=== PATIENT | female | born 1940 | race Caucasian/White ===

== ENCOUNTER → 2016-08-28 | Outpatient (CLI) | payer MEDICARE, OTHER | END | disposition home or self-care (01) | LOC: GMAB 10:25 | PROVIDERS: ATTEND Family Medicine | DX: I10 Essential (primary) hypertension (principal) ==

== ENCOUNTER → 2016-08-30 | Outpatient (CLI) | payer OTHER ==
--- NOTE | 2016-09-02 09:07 | CT ---
EXAM DESCRIPTION: Chest w/o Contrast CLINICAL HISTORY: COPD Reference: November 07, 2016 TECHNIQUE: CT of the chest was performed without contrast.. Multiple axial images and multiplanar reconstructions were generated. This exam was performed according to our department minimal dose optimization program which includes automated exposure control, adjustment of mA and/or kV according to patient size and/or use of iterative reconstructed techniques. FINDINGS: Mild emphysema noted. Chronic bronchopulmonary changes seen in the periphery of bilateral lungs. Scarring seen within the right middle lobe. Scarring seen within the lingula. Tiny 2-3 mm peripheral nodules noted. No pleural disease. Multiple left breast masses. Heart size is normal. Coronary artery disease noted. No mediastinal lymphadenopathy. Bilateral renal stones. Query right hydronephrosis versus peripelvic cysts. IMPRESSION: 1. Multiple left breast masses. Recommend a mammogram and ultrasound of left breast. 2. Mild emphysema. 3. Tiny 2-3 mm pulmonary nodules noted within the periphery of bilateral lungs. A follow-up in 6-12 months is suggested. 4. Left nonobstructing renal stones seen within the upper pole of kidney. Query a right upper pole parapelvic cyst or right hydronephrosis. Electronically signed by: Bryson Torres MD 09/02/2016 9:07 AM CDT
== END | disposition home or self-care (01) ==
LOC: CT 11:02
PROVIDERS: ATTEND Family Medicine
DX: J44.9 Chronic obstructive pulmonary disease, unspecified (principal)

== ENCOUNTER → 2016-09-11 | Outpatient (CLI) | payer OTHER ==
--- NOTE | 2016-09-11 12:20 | US ---
EXAM DESCRIPTION: Diagnostic Mammo,Bilateral (accession [id number]), Breast,Bilateral (accession [id number]) CLINICAL HISTORY: 76 years, Female, Screening mammogram COMPARISON: None TECHNIQUE: CC and MLO digital mammograms with computer aided detection. FINDINGS: The breast parenchyma is heterogeneously dense which may decrease the sensitivity of mammography. The palpable abnormality is a large spiculated mass with architectural distortion in the upper inner aspect of the left breast 6 cm from the nipple. The mass measures 2.7 x 2.4 cm in size and is just medial to the median nipple line located at about 11:00. There are associated malignant pleomorphic microcalcifications. There is also a second nodule located medially near the chest wall as seen on the CT scan only partially visualized on the mammogram. This measures 7 mm in size and is most consistent with metastatic lymphadenopathy. Smoothly marginated masslike density is present in the central portion of the gland behind the nipple on the left. Ill-defined asymmetric parenchymal density is present in the deep portion of the gland on the right centrally just above the median nipple line. Ultrasound of both breasts is performed to evaluate the findings described above. The spiculated mass with associated architectural distortion on the left is indeed a solid hypoechoic shadowing irregularly lobulated mass measuring 2.9 cm in size. Calcifications are observed within the anterior of the mass. The other two findings discussed above are both simple cysts one on the left at about 2:00 and one on the right at 10:00. IMPRESSION: BI-RADS 5 - HIGHLY SUGGESTIVE OF MALIGNANCY - APPROPRIATE ACTION SHOULD BE TAKEN. 1. A negative x-ray report should not delay biopsy if a dominant or clinically suspicious mass is present. 10 -15% of cancers are not identified by x-ray. 2. A negative report may reinforce clinical impression. 3. Adenosis and dense breasts may obscure an underlying neoplasm. 4. False positive reports average 6 -10%. I have discussed the findings with Dr. Ledezma by telephone Electronically signed by: Morris Currie MD 09/11/2016 12:19 PM CDT
== END | disposition home or self-care (01) ==
LOC: MAMMO 11:13
PROVIDERS: ATTEND Surgery
DX: N63 Unspecified lump in breast (principal)

== ENCOUNTER → 2016-09-12 | Outpatient (CLI) | payer MEDICARE, OTHER ==
--- NOTE | 2016-09-12 13:38 | US ---
History: Palpable nodules bilaterally. Suspicious left breast nodule 11:00. DATE OF SERVICE: 09/12/2016 Services provided: Ultrasound guided core needle biopsy left breast nodule 11:00. Ultrasound-guided needle biopsy second nodule left breast 11:00 FINDINGS: A total of 11 images are submitted and demonstrate needle biopsy of two nodules at the 11:00 portion of the left breast, performed by the patient's surgeon. Complication is not suggested on this series provided. IMPRESSION: Technically successful biopsy multifocal nodules left breast 11:00. Electronically signed by: Florina Her MD 09/12/2016 1:38 PM CDT
--- NOTE | 2016-09-13 11:25 | OP ---
DATE OF PROCEDURE: 09/12/16 PREOPERATIVE DIAGNOSIS: 1. Abnormal left mammogram. POSTOPERATIVE DIAGNOSIS: 1. Abnormal left mammogram. PROCEDURE: 1. Sonographically guided needle core biopsy of left breast mass times two. SURGEON: Luis Enrique Ledezma MD. TELECOMMUNICATION OPERATOR: None. ANESTHESIA: Local infiltration of 1% lidocaine. INDICATION: The patient is a 76-year-old female who on CT scan to followup previous small pulmonary nodules was found to have masses in both breasts. She has undergone ultrasound and mammographic workup which revealed two solid masses in the left breast, one at 11 o'clock and one medial to that. She was brought to the Ultrasound Suite today for these biopsies after the risks, benefits and alternatives to the procedure were discussed and accepted. FINDINGS: Good solid cores were taken from both lesions. PROCEDURE: The patient was placed in the supine position in the Ultrasound Suite with her left arm extended. The breast was examined and the two masses were identified. The breast lateral and inferior the ultrasound probe was prepped with Betadine and then draped. Local infiltration of anesthesia was obtained with 1% lidocaine. A stab wound was then made with a 15 blade. There was a significant amount of venous bleeding, which was controlled with pressure. The ultrasound device was then used to guide the needle core biopsy device with multiple passes in both lesions, which she tolerated easily. A single suture was placed in the stab wound and then with pressure, bleeding was controlled easily. She was then dressed with a pressure dressing and discharged home in stable condition. Estimated blood loss was less than 25 mL. The patient tolerated the procedure well. #[id number] [facility]
== END | disposition home or self-care (01) ==
LOC: US 09:54
PROVIDERS: ATTEND Surgery
DX: N63 Unspecified lump in breast (principal)

== ENCOUNTER → 2016-09-17 | Outpatient (CLI) | payer MEDICARE, OTHER | LOC: LAB.O 12:48 | PROVIDERS: ATTEND Surgery | DX: C50.212 Malignant neoplasm of upper-inner quadrant of left female breast (principal) ==

== ENCOUNTER → 2016-09-19 | Outpatient (CLI) | payer MEDICARE, OTHER ==
--- NOTE | 2016-09-24 09:02 | NM ---
Whole body bone scintigraphy CLINICAL HISTORY: Breast carcinoma. Assess for metastatic disease TECHNIQUE: Whole body bone scan with 28 mCi technetium 99 MDP FINDINGS: Multifocal articular uptake consistent with osteoarthritis. Cervicothoracic and lumbar degenerative disc and facet disease likely accounts for the uptake in the spine There are no lesions in the axial or appendicular skeleton to strongly suggest metastatic disease IMPRESSION: No scintigraphic evidence to strongly suggest osseous metastatic disease. The abnormal uptake of the radiopharmaceutical can be attributed to osteoarthritis and spondylosis Electronically signed by: Ap Kaiser MD 09/24/2016 9:02 AM CDT
== END ==
LOC: NM 08:28
PROVIDERS: ATTEND Surgery
DX: C50.212 Malignant neoplasm of upper-inner quadrant of left female breast (principal)

== ENCOUNTER → 2016-11-29 | Outpatient (CLI) | payer MEDICARE, OTHER ==
--- NOTE | 2016-12-02 08:22 | RAD ---
EXAM DESCRIPTION: Knee,Left Complete CLINICAL HISTORY: 76 yearsFemale, PAIN COMPARISON: 06/18/2013 IMPRESSION: 4 views of the left knee were obtained. Scattered areas of sclerosis are demonstrated in the fibular head. These are unchanged compared to the prior exam. Stability favors a benign process such as prior bone infarcts, though sclerotic metastases are not totally excluded. If indicated, MRI may further evaluate. There is no evidence of acute fracture or dislocation. Severe changes of osteoarthritis are demonstrated involving all 3 compartments of the knee, most pronounced in the medial tibiofemoral and patellofemoral compartments. There is a trace suprapatellar joint effusion present. Electronically signed by: Justyn Winter MD 12/02/2016 8:21 AM CDT
--- NOTE | 2016-12-02 08:40 | RAD ---
EXAM DESCRIPTION: Pelvis CLINICAL HISTORY: 76 years Female, PAIN COMPARISON: None. FINDINGS: 2 views of the pelvis show no acute fracture or malalignment. There is mild bilateral hip joint space narrowing. Mild degenerative changes are noted in the sacroiliac joints bilaterally. There is degenerative disc disease in the lower lumbar spine. IMPRESSION: Mild degenerative changes in both hips and sacroiliac joints. No acute pelvic abnormality. Degenerative disc disease at several levels in the lower lumbar spine. Electronically signed by: Paulino Yee MD 12/02/2016 8:39 AM CDT [facility]station: [facility]
--- NOTE | 2016-12-02 08:41 | RAD ---
EXAM DESCRIPTION: Knee,Right Complete CLINICAL HISTORY: 76 years Female, PAIN COMPARISON: None. FINDINGS: 4 views of the right knee show no acute fracture or malalignment. Is a small right knee joint effusion. Mild to moderate tricompartmental degenerative changes are noted including mild joint space narrowing and osteophyte formation. Findings are slightly worse in the patellofemoral compartment. Vascular calcifications are noted posterior to the right knee. IMPRESSION: [id number] tricompartmental degenerative changes and a small right knee joint effusion. Vascular calcifications. Electronically signed by: Paulino Yee MD 12/02/2016 8:40 AM CDT [facility]
== END | disposition home or self-care (01) ==
LOC: RAD 08:44
PROVIDERS: ATTEND Orthopaedic Surgery
DX: M25.561 Pain in right knee (principal); M25.551 Pain in right hip

== ENCOUNTER 2017-06-10 14:51 | Observation (INO) | payer MEDICARE, OTHER ==
--- NOTE | 2017-06-10 15:57 | CT ---
EXAM DESCRIPTION: CT-Head without contrast CLINICAL HISTORY: slurred speech,rambling COMPARISON: None available TECHNIQUE: Multiple axial images of the head without contrast. Multiplanar reformatted images. This exam was performed according to our departmental dose-optimization program, which includes automated exposure control, adjustment of the mA and/or kV according to patient size and/or use of iterative reconstruction technique. FINDINGS: There is no CT evidence of intracranial hemorrhage, mass effect, or large territory infarction. Mild generalized volume loss. Mild patchy supratentorial white matter hypodensities. Chronic lacunar infarct in the left basal ganglia. There are no abnormal extra-axial fluid collections. Vascular structures are unremarkable. Several well-defined subcentimeter lucencies are demonstrated throughout the calvarium. There is no acute calvarial defect. The visualized paranasal sinuses and the mastoids are clear. IMPRESSION: 1. No CT evidence of an acute intracranial abnormality. If there is concern for an acute or subacute infarct, consider follow-up MRI. 2. Senescent changes. 3. Several well-circumscribed lucencies in the skull which are nonspecific but may represent metastatic disease or myeloma in the appropriate clinical setting. If indicated, a nuclear medicine bone scan may further evaluate. Electronically signed by: Justyn Winter MD 06/10/2017 3:56 PM RN TEAM LEADER
--- NOTE | 2017-06-10 16:03 | RAD ---
EXAM DESCRIPTION: Chest,2 Views CLINICAL HISTORY: 76 years Female, cough COMPARISON: CT of the chest dated 30 Aug 2016 TECHNIQUE: PA/lateral FINDINGS: There is no cardiac or pulmonary abnormality. The lungs are clear. There is no effusion. IMPRESSION: 1. Normal two-view chest. Electronically signed by: Emmett Martinez MD 06/10/2017 4:02 PM [facility]
[2017-06-10] MEDS ORDERED: cefTRIAXone SODIUM 1 GM in SODIUM CHL 0.9% 50ML MIN-BAG+ 50 ML IVPB ONE (16:20)
[2017-06-10] MEDS ORDERED: IPRATROPIUM/ALBUTEROL 3 ML VIAL NEB ONE (16:20)
[2017-06-10] MEDS ORDERED: OSELTAMIVIR 75 MG CAP PO ONE (16:21)
[2017-06-10] MEDS ORDERED: cefTRIAXone SODIUM 1 GM VIAL ONE (16:32)
[2017-06-10] MEDS ORDERED: SODIUM CHL 0.9% 50ML MIN-BAG+ 50 ML IVPB ONE (16:32)
--- NOTE | 2017-06-10 16:37 | ED.PDOC ---
History of Present Illness - General Chief Complaint: Neuro Symptoms/Deficits Stated Complaint: cough,altered mental status Time Seen by Provider: 06/10/17 15:11 Source: patient Exam Limitations: no limitations - History of Present Illness Initial Comments: the patient is a 76-year-old female presenting to the emergency room secondary to very mild delirium according to her family. She also has had a mild cough as well as congestion and a mild sore throat for the last 24 hours. No real body aches. She does have a history of COPD but is not oxygen dependent. She does periodically use nebulizer treatments. She was found to be significantly hypoxic at rest ranging from 85-88% on room air. The patient doesn't know where she is otherwise going on. Her attention span is poor. There are no focal neurological deficits. Examination of her lumpectomy site shows no evidence of any infection. She is pleasant and cooperative. No abdominal pain. No rashes. Oropharynx is mildly red. Nares are mildly red. No nuchal rigidity or meningeal signs. No syncope or near-syncope. No new medications. She has not started any chemotherapy or radiation at this time. Timing/Duration: 24 hours Severity: moderate Improving Factors: nothing Worsening Factors: nothing Associated Symptoms: cough, fever/chills, malaise Allergies/Adverse Reactions: Allergies UNOBTAINABLE Allergy (Verified 12/22/15 05:41) Home Medications: Ambulatory Orders Albuterol Sulfate Nebs [Proventil Nebs] 2.5 mg INH QID PRN 06/10/17 Fluoxetine HCl [PROzac] 20 mg PO DAILY 06/10/17 Hydrochlorothiazide 12.5 mg PO PRN 06/10/17 Imipramine HCl 100 mg PO BEDTIME 06/10/17 Meloxicam [Mobic] 15 mg PO DAILY 06/10/17 Review of Systems - Review of Systems Constitutional: States: fever, malaise EENTM: States: nose congestion, throat pain Respiratory: States: cough Cardiology: States: no symptoms reported Gastrointestinal/Abdominal: States: no symptoms reported Genitourinary: States: no symptoms reported Musculoskeletal: States: no symptoms reported Skin: States: no symptoms reported Neurological: States: other - alexandre mild delirium Endocrine: States: no symptoms reported All other Systems: No Change from Baseline Past Medical History (General) - Patient Medical History Hx Seizures: No Hx Stroke: No Hx Dementia: No Hx Asthma: No Hx of COPD: No Hx Cardiac Disorders: No Hx Congestive Heart Failure: No Hx Pacemaker: No Hx Hypertension: No Hx Thyroid Disease: No Hx Diabetes: No Hx Gastroesophageal Reflux: No Hx Renal Disease: No Hx Cancer: Yes - Breast Hx of HIV: No Hx Hepatitis C: No Hx MRSA: No - Vaccination History Hx Tetanus, Diphtheria Vaccination: No Hx Influenza Vaccination: - unknown Hx Pneumococcal Vaccination: Yes - Social History Hx Tobacco Use: Yes Hx Chewing Tobacco Use: No Hx Alcohol Use: Yes - occ Hx Depression: Yes Hx Physical Abuse: No Hx Emotional Abuse: No Hx Suspected Abuse: No - Female History Patient : No Family Medical History - Family History Mother Family History: Unknown Physical Exam - Physical Exam General Appearance: Alert, Comfortable, No apparent distress, Other - he patient is actually a little bit giddy Eye Exam: bilateral normal Ears, Nose, Throat: hearing grossly normal, nasal congestion, pharyngeal erythema Neck: full range of motion, supple Respiratory: no respiratory distress, no accessory muscle use, rales - iffuse scattered, rhonchi - diffuse scattered, wheezing - mild and scattered Cardiovascular/Chest: normal peripheral pulses, regular rate, rhythm, no edema Peripheral Pulses: radial,right: 2+, radial,left: 2+, dorsalis pedis,right: 2+, dorsalis pedis,left: 2+ Gastrointestinal/Abdominal: non tender, soft Rectal Exam: deferred Back Exam: normal inspection, no CVA tenderness, no vertebral tenderness Extremity: normal range of motion, non-tender, normal inspection, no pedal edema , normal capillary refill Neurologic: chicken cleaner II-XII nml as tested, no motor/sensory deficits, alert, oriented x 3 Skin Exam: normal color Comments: Vital Signs - 24 hr 06/10/17 06/10/17 06/10/17 15:01 15:17 16:01 Temperature 98.5 F Pulse Rate [ 99 H Left Brachial] Respiratory 20 20 Rate Blood Pressure 148/76 [Left Arm] O2 Sat by Pulse 90 L 95 Oximetry Progress - Progress Progress: 06/10/17 16:39 the patient is a 76-year-old female presenting to the emergency room with what appears to be a COPD exacerbation of an uncertain source. The patient is going to be covered with Rocephin and azithromycin as well as with Tamiflu as it is fairly prevalent in the community at this time. We are unable to test for influenza at this time. Blood cultures have been performed. The patient is receiving a nebulizer treatment. She does require supplemental oxygen to keep her oxygen levels greater than 90%. The patient does have a very mild delirium. This is likely due to a day or so of hypoxia. No evidence of meningitis. She is alert and oriented 4. Admit for further treatment and workup as indicated by response. - Results/Orders Results/Orders: influenza test is not done due to lack of availability. Laboratory Tests 06/10/17 06/10/17 06/10/17 15:40 15:40 15:40 WBC 7.3 RBC 4.38 Hgb 14.7 Hct 42.4 MCV 96.9 MCH 33.5 H MCHC 34.6 RDW 12.8 Plt Count 194 MPV 8.7 Absolute Neuts (auto) 4.90 Absolute Lymphs (auto) 1.30 Absolute Monos (auto) 0.80 Absolute Eos (auto) 0.20 Absolute Basos (auto) 0.00 Neutrophils % 68.0 Lymphocytes % 17.9 L Monocytes % 10.6 H Eosinophils % 3.1 Basophils % 0.4 PT 12.8 H INR 1.130 PTT (SP) 61.1 H D-Dimer, Quantitative < 200 Sodium 139 Potassium 3.4 L Chloride 101 Carbon Dioxide 27 Anion Gap 14.4 BUN 26 H Creatinine 0.64 BUN/Creatinine Ratio 40.6 H Random Glucose 122 H Serum Osmolality 283.6 Calcium 10.5 H Total Bilirubin 0.5 AST 18 ALT 18 Alkaline Phosphatase 83 Serum Total Protein 6.9 Albumin 3.5 Globulin 3.4 Albumin/Globulin Ratio 1.0 L Urine Color Urine Appearance Urine pH Ur Specific Boon Urine Protein Urine Glucose (UA) Urine Ketones Urine Blood Urine Nitrite Urine Bilirubin Urine Urobilinogen Ur Leukocyte Esterase Urine RBC Urine WBC Ur Epithelial Cells Amorphous Sediment Urine Bacteria 06/10/17 16:05 WBC RBC Hgb Hct MCV MCH MCHC RDW Plt Count MPV Absolute Neuts (auto) Absolute Lymphs (auto) Absolute Monos (auto) Absolute Eos (auto) Absolute Basos (auto) Neutrophils % Lymphocytes % Monocytes % Eosinophils % Basophils % PT INR PTT (SP) D-Dimer, Quantitative Sodium Potassium Chloride Carbon Dioxide Anion Gap BUN Creatinine BUN/Creatinine Ratio Random Glucose Serum Osmolality Calcium Total Bilirubin AST ALT Alkaline Phosphatase Serum Total Protein Albumin Globulin Albumin/Globulin Ratio Urine Color Yellow Urine Appearance Clear Urine pH 5.5 Ur Specific Boon 1.025 Urine Protein Negative Urine Glucose (UA) Negative Urine Ketones Trace Urine Blood Negative Urine Nitrite Negative Urine Bilirubin Small H Urine Urobilinogen 1.0 Ur Leukocyte Esterase Trace H Urine RBC 0-1 Urine WBC 1-3 Ur Epithelial Cells 3-5 Amorphous Sediment 1+ Urine Bacteria Rare chest x-ray shows no significant focal infiltrate. She does have changes consistent with her COPD. No pneumothorax. No obvious fluid overload. EKG shows normal sinus rhythm at a rate of 90 bpm. Mild right axis deviation. Occasional PVCs. Poor R-wave progression in anterior leads. No acute ST segment changes otherwise consistent with ischemia. I have no previous EKGs to compare to. - EKG/XRAY/CT CT Ordered: Yes Departure - Departure Clinical Impression: Hypoxic encephalopathy, Acute exacerbation of chronic obstructive pulmonary disease (COPD) Disposition: Admit Patient Home Medications: Ambulatory Orders Albuterol Sulfate Nebs [Proventil Nebs] 2.5 mg INH QID PRN 06/10/17 Fluoxetine HCl [PROzac] 20 mg PO DAILY 06/10/17 Hydrochlorothiazide 12.5 mg PO PRN 06/10/17 Imipramine HCl 100 mg PO BEDTIME 06/10/17 Meloxicam [Mobic] 15 mg PO DAILY 06/10/17 Decision To Admit - Decistion To Admit Decision to Admit Reason: Medical Nature Decision to Admit Date: 06/10/17 Decision to Admit Time: 16:41
[2017-06-10] MEDS ORDERED: AZITHROMYCIN IV 500 MG in SODIUM CHLORIDE 0.9% 250ML 250 ML IVPB ONE (16:42)
--- NOTE | 2017-06-10 17:01 | HP ---
SUPERVISING PHYSICIAN: Carlos Perez MD CHIEF COMPLAINT: Cough and altered mental status. HISTORY OF PRESENT ILLNESS: Ms. Lancaster is a 76-year-old, female patient of Dr. Joshi who was referred from the Emergency Room after she was seen in the clinic today after it was noted the patient was having some chest congestion, worsening cough over the last 5 days as well as family members reporting the patient was not acting herself and some reported slurred speech. She does have a significant history of being a smoker of approximately a pack a day with recent breast cancer diagnosis and underlying chronic obstructive pulmonary disease. In the Emergency Room and the clinic, she was found to be hypoxic at rest with SPO2 ranging between 85% and 88% on room air. Laboratory studies showed she had a normal white count without a left shift with white count being 7,300. Coagulation studies did show elevation of both PT and PT-T, but a normal D-dimer. Chemistries showed a normal potassium, normal sodium, just a slightly elevated calcium and renal function showing a slightly elevated BUN of 26 with creatinine 0.64. Liver functions all within normal limits. Urinalysis was also completed showing just a small amount of bilirubin, trace leukocyte esterase with microscopic showing 0 to 1 RBCs, 1 to 3 WBCs, 3 to 5 epithelials, rare bacteria. Radiographic studies completed in the Emergency Room included CT of the head and x-ray of the chest. CT of the head without contrast per radiologic interpretation showed no CT evidence of acute intracranial abnormalities. There was note of senescent changes along with several well circumscribed lucencies in the skull which were nonspecific which were noted to be possibly metastatic disease or myeloma given the right clinical setting. Two-view chest x-ray per radiologic interpretation showed lungs to be clear with normal two-view chest. The patient's symptoms improved with oxygen with her showing O2 saturations going up to 95% on 2 liter nasal cannula at rest. She is hemodynamically stable with blood pressure 132/76, heart rate 80 and was afebrile with a temperature of 98.7. Her mentation had improved, but given the fact that she was significantly hypoxia with significant underlying chronic obstructive pulmonary disease with some exacerbation, Dr. Edgardo Veliz, Emergency Room physician, requested the patient be placed in observation for further evaluation and treatment given the patient' s past medical history. The patient now has been placed in observation on the Medical/Surgical Floor in stable condition. PAST MEDICAL HISTORY: 1. Chronic bronchitis. 2. Chronic obstructive pulmonary disease. 3. Osteoporosis. 4. Osteopenia. 5. Depression. 6. Recent diagnosis of breast cancer in October 2016. PAST SURGICAL HISTORY: 1. Excisional breast biopsy, benign in 1985 and 1986 and additional recent biopsy in 2016. 2. Hammertoe correction. 3. Intrauterine device removal. HOME MEDICATIONS: 1. Meloxicam 15 mg daily. 2. Hydrochlorothiazide 12.5 mg as needed. 3. Proventil nebulizers 2.5 mg q.i.d. 4. Imipramine 100 mg at bedtime. 5. Prozac 20 mg daily. ALLERGIES: CITRIC ACID, MEPERIDINE, SULFA ANTIBIOTICS. FAMILY HISTORY: The patient has a history of breast cancer in her mother. It was diagnosed in the 80s. A maternal aunt was diagnosed with breast cancer and there is also a history of prostate and pancreatic cancers throughout other family members. SOCIAL HISTORY: The patient is a teacher current unemployed. She is . She does smoke approximately one pack a day and has for at least 30 to 40 years. She denies any illicit drug use and does drink wine on social occasions. REVIEW OF SYSTEMS: CONSTITUTIONAL: Subjective fever and general malaise. HEENT: She has had some nasal congestion and sore throat. No earaches. RESPIRATORY: Nonproductive cough with some mild shortness of breath. CARDIOVASCULAR: Denies chest pain or palpitations, no syncopal episodes. GASTROINTESTINAL: Denies nausea or vomiting, no diarrhea or constipation. GENITOURINARY: Denies dysuria, hematuria or other urinary symptoms. NEUROLOGIC: As noted in history of present illness, some mild delirium, but no reported neurological deficits. PHYSICAL EXAMINATION: VITAL SIGNS: In the Emergency Room, temperature was 98.5. Pulse 99. Blood pressure 148/76. Respirations 20. Saturation 84% to 90% on room air, improving with oxygen at 95% at rest. Admission weight 77.4 kg. GENERAL: On examination on the Medical/Surgical Floor, the patient appears to be comfortable and in no acute distress. She is well-nourished. HEENT: Tympanic membranes clear bilaterally. Oropharynx is pink, moist without any lesions. NECK: Supple, nontender with full range of motion. No jugular venous distention noted. CHEST: Lungs show some diffuse rhonchi along with some faint wheezing and diminished towards the bases bilaterally. CARDIOVASCULAR: Regular rate and rhythm without any appreciable murmurs, gallops, or rubs. ABDOMEN: Obese, but soft. Positive bowel sounds. EXTREMITIES: There is no cyanosis, clubbing or edema. NEUROLOGIC: The patient is alert and oriented times three. Cranial nerves II- XII are grossly intact. There were no obvious motor or sensory deficits. Facial features are symmetrical. Extraocular movements are within normal limits. There is no nystagmus noted. LABORATORY: White count 7,300, hemoglobin 14.7, hematocrit 42.4, platelet count 194,000. Differential within normal limits. Coagulation studies did show an elevated PT at 12.8 with PT-T 61.1, D-dimer less than 200. Chemistries showed normal sodium 139, potassium low at 30.4, BUN slightly elevated at 26, creatinine 0.64, glucose 122, calcium 10.5. Liver functions were all within normal limits. Urinalysis showed a small amount of bilirubin with trace leukocyte esterase on dipstick. Microscopic was within normal limits. MICROBIOLOGY: Blood cultures times 2 are pending. RADIOLOGY: Chest x-ray per right inguinal hernia, two-view chest, showed lungs to be clear with no pulmonary abnormalities, normal two view chest. She also had a CT without contrast and per radiologic interpretation showed no CT evidence of acute intracranial abnormalities noted. There was mention of senescent changes along with side effects from well-circumscribed lucencies in the skull which were nonspecific, but could represent possible metastatic disease or myeloma in the appropriate clinical setting. Recommended nuclear medicine bone scan for further evaluation if indicated clinically. ASSESSMENT: 1. Acute delirium secondary to hypoxic encephalopathy secondary to chronic obstructive pulmonary disease exacerbation. 2. Chronic obstructive pulmonary disease with exacerbation with developing bronchitis. 3. Electrolyte imbalance with a mild hypokalemia. 4. Mild dehydration. 5. Elevated coagulation studies, uncertain etiology, needing close followup with the patient's current findings on CT of the head as well as recent history of breast cancer. 6. CT of head with several small well-circumscribed lucencies in the skull, nonspecific findings per radiologic interpretation, but could present metastasis or myeloma in the right clinical setting and given the patient's recent history of breast cancer, additional followup is needed to further investigate possible metastatic disease process. 7. History of depression. 8. Recent diagnosis of breast cancer, left sided, followed by Dr. Miles and oncology as well as Dr. Ledezma. 9. History of osteoarthritis and osteopenia. PLAN: The patient is now going to be placed in observation for some mild exacerbation of chronic obstructive pulmonary disease along with concerns for mental status change likely secondary to hypoxemia. She will be on O2 and aggressive pulmonary hygiene with DuoNeb treatments as needed q.i.d. as well. Blood cultures have been completed and she will be continued on azithromycin and Rocephin started in the Emergency Department. We will plan to give her some IV fluids with D5 half normal saline with 20 of potassium to run at 80 an hour. We will plan to repeat her coagulation studies in the morning and given the elevation in PT-T, keep her NPO after midnight in case of need for an ultrasound or CT in the morning until further evaluation. We will plan to repeat lab studies. Certainly if her PT and PT-T are within normal limits, she could be followed in the outpatient setting and she should be allowed to eat breakfast tomorrow morning. We will restart her home medications once they have been updated and verified in the electronic medical records. We will wait to start DVT prophylaxis and repeat the PT-T in the morning. She will be on early ambulation and SCDs as per protocol. We will anticipate her length of stay to be 1 to 2 days and possibly discharge tomorrow with close clinical followup needed. Until discharge, we will continue to monitor the patient closely and treat appropriately. #[id number] [facility]
[2017-06-10] MEDS ORDERED: SODIUM CHLORIDE 0.9% (FLUSH) 10 ML SYG IV PRN (17:23)
[2017-06-10] MEDS ORDERED: ACETAMINOPHEN 325 MG TAB PO PRN (17:23)
[2017-06-10] MEDS ORDERED: ALBUTEROL SULFATE 2.5 MG/3 ML VIAL NEB PRN (17:23)
[2017-06-10] MEDS ORDERED: ONDANSETRON INJ 4 MG/2 ML VIAL IV PRN (17:23)
[2017-06-10] MEDS ORDERED: IV SET AND CAP CHANGE INJ INJ SCH (17:30)
--- NOTE | 2017-06-10 17:51 | PCM.CORE ---
Physician DVT/VTE - Nurse DVT Assessment & Total Each Risk Factor Represents 3 Points: Age over 75 years Each Risk Factor is 1 Point: Obesity (BMI >25), Serious Lung disease (pnemonia < 1month, COPD, emphysema,etc) DVT Assessment Score: 5 - 5 or more Very High Risk Treatments: Early Ambulation *, Sequential Compression Device Pharmacological: Enoxaparin 40mg SQ Daily
[2017-06-10] MEDS ORDERED: ENOXAPARIN SODIUM 40 MG/0.4 ML SYG SUBCU SCH (18:00)
[2017-06-10] MEDS: SODIUM CHLORIDE 0.9% (FLUSH) 10 ML SYG IV SCH (21:00)
[2017-06-10] MEDS: KCL 20MEQ/D5 1/2NS 1,000 ML IVS PRN (21:15)
[2017-06-10] MEDS ORDERED: LISINOPRIL 10 MG TAB PO SCH (21:30)
[2017-06-10] MEDS: IPRATROPIUM/ALBUTEROL 3 ML VIAL INH SCH (21:48)
[2017-06-10] MEDS: OSELTAMIVIR 75 MG CAP PO SCH (22:57)
[2017-06-11] MEDS ORDERED: PANTOPRAZOLE SODIUM IV 40 MG VIAL IV SCH (06:30)
--- NOTE | 2017-06-11 06:59 | RAD ---
EXAM: Two view chest. INDICATION: Pneumonia. COMPARISON: Chest x-ray: 06/10/2017. FINDINGS: Cardiac silhouette: Unremarkable. Alana: Unremarkable. Lobar consolidation: None. Pleural effusion: None. Pneumothorax: None. Other: None. Bones: Unremarkable. Other: None. IMPRESSION: 1. No acute cardiopulmonary process. Electronically signed by: Roddy De Paz MD 06/11/2017 6:58 AM [facility] Workstation: [id number]
[2017-06-11] MEDS: IPRATROPIUM/ALBUTEROL 3 ML VIAL INH SCH (07:59)
[2017-06-11] MEDS: IPRATROPIUM/ALBUTEROL 3 ML VIAL NEB SCH ×2 (08:01→13:05)
[2017-06-11] MEDS ORDERED: SODIUM CHLORIDE 0.9% 250ML 250 ML ONE (08:19)
[2017-06-11] MEDS ORDERED: AZITHROMYCIN IV 500 MG VIAL IVPB ONE (08:20)
[2017-06-11] MEDS: SODIUM CHLORIDE 0.9% (FLUSH) 10 ML SYG IV SCH (08:38)
[2017-06-11] MEDS ORDERED: FLUoxetine HCL 20 MG CAP PO SCH (09:00)
[2017-06-11] MEDS ORDERED: AZITHROMYCIN IV 500 MG in SODIUM CHLORIDE 0.9% 250ML 250 ML IVPB SCH (09:00)
[2017-06-11] MEDS: OSELTAMIVIR 75 MG CAP PO SCH (09:31)
[2017-06-11 11:02] VITALS: TEMP 97.8; O2SAT 93
[2017-06-11] MEDS ORDERED: cefTRIAXone SODIUM 1 GM in SODIUM CHL 0.9% 50ML MIN-BAG+ 50 ML IVPB SCH (12:00)
[2017-06-11] MEDS ORDERED: cefTRIAXone SODIUM 1 GM VIAL ONE (12:38)
[2017-06-11] MEDS ORDERED: SODIUM CHL 0.9% 50ML MIN-BAG+ 50 ML IVPB ONE (12:38)
[2017-06-11] MEDS: KCL 20MEQ/D5 1/2NS 1,000 ML IVS PRN (12:44)
[2017-06-11 15:28] VITALS: BP 107/78
--- NOTE | 2017-06-11 17:58 | DS ---
SUPERVISING PHYSICIAN: Carlos Perez M.D. DISCHARGE DIAGNOSIS: 1. Acute delirium secondary to hypoxic encephalopathy secondary to chronic obstructive pulmonary disease exacerbation. 2. Chronic obstructive pulmonary disease with a question of developing bronchitis. 3. Electrolyte imbalance that had improved. 4. Mild dehydration. 5. Elevated coagulation studies, uncertain etiology. 6. CT of the head with several small well circumscribed lucencies in the skull , nonspecific findings per radiology interpretation but could represent a metastatic or myeloma in the right clinical settings and given the patient's recent history of breast cancer. Additional followup is needed to further investigate possible metastatic disease process. 7. History of depression. 8. Recent diagnosis of breast cancer left sided followed by Dr. Miles, oncology, as well as Dr. Ledezma. 9. History of osteoarthritis and osteopenia. HISTORY OF PRESENT ILLNESS: This is a 76 year-old female patient of Dr. Miles' s who was referred from the Emergency Room after she was seen in clinic today when it was noted the patient was having some chest congestion and worsening cough over the last 5 days as well as family members reporting the patient was not acting herself and also had some slurred speech. She has a significant history of being a smoker of approximately a pack a day with recent breast cancer diagnosis and underlying COPD. In the Emergency Room, she was hypoxic at rest with her O2 sats running between 85 and 88%. Her lab studies showed a normal white count with no left shift. Her coagulation studies showed an elevation of both PT and PTT, but a normal D-dimer. Her PT was 12.8 and PTT was 61.1. Chemistry showed a normal potassium, normal sodium and a slightly elevated calcium with her renal function showing a BUN of 26 and creatinine of 0.64. Liver functions were within normal limits. Urinalysis showed a small amount of bilirubin, trace leukocyte esterase with microscopic 0 to 1 RBCs, 1 to 3 WBCs and 3 to 5 epithelials and rare bacteria. Radiographic studies completed in the E. R. included a CT of the head and x-ray of the chest. CT of the head without contrast per radiology interpretation showed no CT evidence of acute intracranial abnormalities. There was note of senescent changes along with several well-circumscribed lucencies in the skull which were nonspecific and were noted to be possibly metastatic disease or myelomas given the right clinical setting. Two view of the chest x-ray per radiology interpretation showed the lungs to be clear and normal two view chest. The patient's symptoms improved with oxygen and her showing O2 saturations going up to 95% on 2 liters nasal cannula. Hemodynamically she was stable. She was placed in the hospital under Observation. HOSPITAL COURSE: She was given breathing treatments as well as started on azithromycin and Rocephin. Breathing treatments were continued. Preliminary blood cultures showed no growth to date. She has been walking in the hallways. Her oxygenation has remained stable on room air. We discussed at length smoking cessation. She will be discharged home today. DISCHARGE PLAN: The patient will be discharged home today in stable condition. She is to resume her home medications. I have discharged her on azithromycin and Cefdinir. She will also continue on her Tamiflu. I have encouraged her to stop smoking. She will need a close followup with Dr. Miles and she will see him on Friday the . She also needs a close followup with her oncologist, especially in regards to her CT scan of the brain as it recommends a nuclear medicine bone scan. She is to return to the hospital or followup with Dr. Miles 's office for any further complications or problems. DISCHARGE MEDICATIONS: 1. Hydrochlorothiazide. 2. Proventil. 3. Imipramine. 4. Prozac. 5. Mobic. 6. Azithromycin. 7. Tamiflu. 8. Cefdinir. Dr. Perez is the collaborating physician available for consultation. #[id number] [facility]
[2017-06-12] MEDS ORDERED: OSELTAMIVIR 75 MG CAP PO SCH (09:00)
== END 2017-06-11 16:40 | disposition home or self-care (01) ==
LOC: ER 14:51 → MS 16:59
PROVIDERS: ADMIT Nurse Practitioner Family; ATTEND Nurse Practitioner Acute Care
DX: J44.1 Chronic obstructive pulmonary disease with (acute) exacerbation (principal); G93.1 Anoxic brain damage, not elsewhere classified; F05 Delirium due to known physiological condition; E87.8 Other disorders of electrolyte and fluid balance, not elsewhere classified; E87.6 Hypokalemia; E86.0 Dehydration; R79.1 Abnormal coagulation profile; F32.9 Major depressive disorder, single episode, unspecified; C50.912 Malignant neoplasm of unspecified site of left female breast; M19.90 Unspecified osteoarthritis, unspecified site; M85.80 Other specified disorders of bone density and structure, unspecified site; F17.210 Nicotine dependence, cigarettes, uncomplicated; Z79.1 Long term (current) use of non-steroidal anti-inflammatories (NSAID); Z79.899 Other long term (current) drug therapy; Z88.3 Allergy status to other anti-infective agents; Z88.2 Allergy status to sulfonamides; Z88.6 Allergy status to analgesic agent; Z88.8 Allergy status to other drugs, medicaments and biological substances
CPT/HCPCS: 36415 ×4; 70450; 71046 ×2; 80048; 80053; 81001; 85025 ×2; 85379; 85610 ×2; 85730 ×2; 87040 ×2; 93005; 94640 ×4; 94760 ×3; 96365; 96366 ×2; 96367; 96372; 96375; 96376; 99284; G0378; J0456; J0696 ×2; J1650; J7050 ×3; J7620 ×4

== ENCOUNTER → 2017-06-17 | Outpatient (CLI) | payer OTHER | LOC: GMAB 14:53 | PROVIDERS: ATTEND Family Medicine | DX: R79.1 Abnormal coagulation profile (principal) ==

== ENCOUNTER → 2017-07-10 | Outpatient (CLI) | payer OTHER ==
--- NOTE | 2017-07-10 17:49 | NM ---
EXAM DESCRIPTION: Bone Scan, 3Phase CLINICAL HISTORY: ABNORMAL FINDINGS ON DIAGNOSTIC IMAGING OF SKULL/HEAD COMPARISON: CT head dated 10 June 2017 RADIOPHARMACEUTICAL: 27.7 mCi technetium 99 M MDP IV FINDINGS: Total body imaging was obtained. Mild increased uptake is observed in the lumbar and thoracic spine and knees suggestive of osteoarthritis.. No abnormal skull uptake is observed. IMPRESSION: No bone scan findings of metastatic neoplasm are detected. Electronically signed by: Emmett Martinez MD 07/10/2017 5:48 PM CDT
== END ==
LOC: NM 08:48
PROVIDERS: ATTEND Family Medicine
DX: R93.0 Abnormal findings on diagnostic imaging of skull and head, not elsewhere classified (principal)
CPT/HCPCS: 78315; A9503

== ENCOUNTER → 2017-12-26 | Outpatient (CLI) | payer OTHER ==
--- NOTE | 2017-12-27 11:46 | CT ---
Procedure: CT LUNG SCREENING Exam Date: 12/26/2017 Ordering Provider: Min Leach Clinical Indication: LUNG SCREENING This patient meets eligibility criteria for low-dose CT lung cancer screening. Comparison: CT scan of the chest and thorax without IV contrast 08/30/2016. Technique: Using a multislice scanner, sequential helical axial imaging was obtained in the thorax, 2.5 mm thickness, 2.5 mm separation, from the level of the thoracic inlet through the lung bases without IV contrast. A low dose protocol was utilized. CTDI: 1.75 mGy. 120. kVp. 45 mA. 2D sagittal and coronal reconstructed images, 6.0 mm thickness, were obtained. This exam was performed according to our departmental dose optimization program which includes use of automated exposure control, adjustment of the mA and/or kV according to patient size and/or use of iterative reconstruction technique. FINDINGS: Lungs and large airways: Groundglass density with mean diameter 5 mm associated with the anterior aspect of the right horizontal fissure, near the pleura, and abutting the right upper lobe on series 2, image 50. Stable since the prior study. Senescent changes in both lungs. No acute infiltrate, and large abnormal nodule or mass. Pleura: Bilateral intermittent pleural thickening. No pleural effusion or pneumothorax. Mediastinum and rodney: Evaluation limited due to lack of IV contrast. Small lymph nodes with no enlarged soft tissue masses. Tracheal and proximal bronchial cartilage calcifications. Heart and great vessels: Coronary artery calcifications. Atherosclerotic calcifications of the thoracic aorta. Chest wall, lower neck, axillae: Calcifications or metallic clips in the superior left breast, previous lumpectomy. 2 Masses noted in the left breast on the prior study are absent. Heterogeneous density of the thyroid gland. 1 cm left axillary lymph node, minimally indistinct borders, axial images 32-33. Upper abdomen: No fluid in the included peritoneal space. Included organs show no definite enlargement. Bones: Multiple levels of spondylosis in the thoracic spine with mid thoracic dextroscoliosis. No sundeep destructive lesions. Bilateral sternoclavicular arthrosis. Minimal narrowing bilateral glenohumeral joints. IMPRESSION: 1. Minimal emphysematous changes in the upper lobes of the lungs bilaterally. Stable 5 mm groundglass density associated with right horizontal fissure and right upper lobe. No new nodules. 2. Masses in the left breast have been removed since the prior study with calcifications and surgical clips now visualized. 1 cm nodular mass in the left axilla with slightly indistinct borders, most likely a reactive lymph node. Consider bilateral diagnostic digital mammography and left breast and left axilla targeted ultrasound if this has not been done since prior diagnostic digital mammography in August 2016. Lung RADS category Category 1 - No nodule or definitely benign nodules (probability of malignancy less than 1%). Follow-up: Continue annual screening with Low Dose Chest CT in 12 months. Lung RADS Modifier S - Clinically Significant or Potentially Clinically Significant Findings (non lung cancer). Electronically signed by: Tyler Birmingham MD 12/27/2017 11:45 AM CDT
== END ==
LOC: CT 16:20
PROVIDERS: ATTEND Family Medicine
DX: Z87.891 Personal history of nicotine dependence (principal)

== ENCOUNTER → 2018-01-13 | Outpatient (CLI) | payer OTHER ==
--- NOTE | 2018-01-14 09:38 | US ---
EXAM DESCRIPTION: Breast,Bilateral: Ultrasound CLINICAL HISTORY: 77 yearsFemaleHX OF MALIGNANT NEOPLASM OF BREAST COMPARISON: Digital diagnostic tomosynthesis mammography bilateral breast on this visit. TECHNIQUE: Transcutaneous scanning of the bilateral breast utilizing cobb-scale and Doppler modes. Scanning performed by the exhibitions and collections manager and Dr. Birmingham. FINDINGS: Scanning of the upper outer quadrant of the anterior third of the right breast with emphasis on the 1000 clock position 4 cm from the nipple. Heterogeneous fibroglandular and fatty echotexture. Oval hypoechoic to anechoic mass with circumscribed margins. Parallel orientation and posterior enhancement features. Dimensions are 10 x 9 x 8 mm. Nonvascular. More likely to represent a complicated cyst than a fibroadenoma. At the 1100 clock position is a similar appearing object measuring 5.6 x 6.4 mm with parallel orientation and posterior enhancement features. Nonvascular. Minimal central echogenicity. Small complicated cyst, fibroadenoma, or lymph node. No large calcifications or parenchymal edema and no abnormal vascularity. Scanning of the left breast upper outer quadrant in the middle third. Scattered heterogeneous fibroglandular and fatty echotexture. More posteriorly in the axillary tail is a hypoechoic circumscribed oval-shaped nodule with central echogenicity. 5.4 x 4.4 mm. Parallel orientation and no posterior signature. Not vascular. Most likely a lymph node. No large calcifications or parenchymal edema. No abnormal vascularity. IMPRESSION: 1. Bi-Rads Category 2: Benign. 2. Please refer to bilateral diagnostic digital breast tomosynthesis examination and report on this visit. The FINDINGS and the FOLLOW-UP plan were reviewed in person with the patient after the examination. Written communication explaining the IMPRESSION and FOLLOW-UP will be mailed to the patient and referring care provider. Electronically signed by: Tyler Birmingham MD 01/14/2018 9:37 AM CDT
--- NOTE | 2018-01-14 16:05 | MAM ---
EXAM DESCRIPTION: 3D Diagnostic, Bilateral: Digital Mammography CLINICAL HISTORY: 77 yearsFemaleMALIGNANT NEOPLASM OF BREAST left breast cancer with lumpectomy and treatment August 2016. Abnormal mass in the left axilla on low-dose CT for lung cancer screening. November 2017.. COMPARISON: 2-D digital screening bilateral study 09/11/2016.. Bilateral targeted breast ultrasound following this examination.. TECHNIQUE: Bilateral CC LM MLO projection full-field images, digital mammographic tomosynthesis technique. Bilateral 2-D digital full-field MLO images. 2-D magnification imaging of the right breast. CAD not utilized. FINDINGS: The breast parenchymal density pattern is: Heterogeneously dense breast tissue, which may obscure small masses. No skin thickening or nipple retraction increased density in the lateral and inferior left axilla, but no definite mass. Architectural distortion indicated by skin marker where left lumpectomy and treatment has been performed. Focal asymmetry at the 1100 clock position of the middle third of the right breast approximately 6 cm from the nipple. Prominent skin folds in the right axilla. Ultrasound: Scanning of the upper outer quadrant of the anterior third of the right breast with emphasis on the 1000 clock position 4 cm from the nipple. Heterogeneous fibroglandular and fatty echotexture. Oval hypoechoic to anechoic mass with circumscribed margins. Parallel orientation and posterior enhancement features. Dimensions are 10 x 9 x 8 mm. Nonvascular. More likely to represent a complicated cyst than a fibroadenoma. At the 1100 clock position is a similar appearing object measuring 5.6 x 6.4 mm with parallel orientation and posterior enhancement features. Nonvascular. Minimal central echogenicity. Small complicated cyst, fibroadenoma, or lymph node. No large calcifications or parenchymal edema and no abnormal vascularity. Scanning of the left breast upper outer quadrant in the middle third. Scattered heterogeneous fibroglandular and fatty echotexture. More posteriorly in the axillary tail is a hypoechoic circumscribed oval-shaped nodule with central echogenicity. 5.4 x 4.4 mm. Parallel orientation and no posterior signature. Not vascular. Most likely a lymph node. No large calcifications or parenchymal edema. No abnormal vascularity. IMPRESSION: Benign exam. BIRAD CATEGORY: 2 BENIGN FINDINGS. RECOMMENDATIONS: FOLLOW UP: Routine digital bilateral screening, one year interval from December 2017. Written communication explaining the IMPRESSION and follow-up, will be mailed to the patient and referring health care provider. According to the [employer], yearly mammograms are recommended starting at age 40 and continuing as long as a woman is in good health. Any breast change noted on a breast self-exam should be reported promptly to the patient's healthcare provider. Breast MRI is recommended for women with an approximately 20-25% or greater lifetime risk of breast cancer, including women with a strong family history of breast or ovarian cancer and women who have been treated for Hodgkin's disease. A negative mammographic report should not delay tissue diagnosis in patients with significant clinical history or physical findings. Extremely dense breast tissue limits the sensitivity of digital mammography. Electronically signed by: Tyler Birmingham MD 01/14/2018 4:03 PM CDT
== END ==
LOC: MAMMO 13:46
PROVIDERS: ATTEND Family Medicine
DX: Z85.3 Personal history of malignant neoplasm of breast (principal)
CPT/HCPCS: 76641; 77066; G0279

== ENCOUNTER 2018-04-29 11:42 | Inpatient (IN) | payer OTHER ==
--- NOTE | 2018-04-29 11:43 | HP ---
SUPERVISING PHYSICIAN: Issa Rodriguez M.D. CHIEF COMPLAINT: Shortness of breath. HISTORY OF PRESENT ILLNESS: This is a 77 year-old female patient who was seen in her primary care physician, Dr. Rodriguez's office today for shortness of breath that had been going on since before . She said she just felt weak since and initially had felt that it was due to the stress of the holidays. Her daughter noted that she has been extremely short of breath and she would not use her oxygen as much as she should have. She also did not have her nebulizer over at her daughter's house and she is staying there at this time. Her daughter said she would either go to the Emergency Room or she would have to go see her physician in the office. She got an appointment with Dr. Rodriguez today. At office visit she was tachypneic with respiratory rate in the mid 20s. Her O2 sat was 88%. Heart rate was greater than 100 and her systolic blood pressure was 90. Dr. Rodriguez felt that she needed to be admitted to the hospital due to exacerbation of her chronic obstructive pulmonary disease as well as a full workup. She was a direct admission from Dr. Rodriguez's office. PAST MEDICAL HISTORY: 1. Chronic obstructive pulmonary disease. 2. Osteoporosis. 3. Osteopenia. 4. Depression. 5. Breast cancer diagnosed in October of 2016. PAST SURGICAL HISTORY: 1. Excisional breast biopsy that was benign in 1985 and 1986, and had an additional biopsy in 2016. 2. Hammertoe correction. HOME MEDICATIONS: 1. Albuterol nebs. 2. Prozac. 3. Hydrochlorothiazide. 4. Imipramine. 5. Meloxicam. ALLERGIES: CITRIC ACID, MEPERIDINE AND SULFA ANTIBIOTICS. FAMILY HISTORY: Positive for breast cancer, prostate and pancreatic cancer. SOCIAL HISTORY: The patient is . She lives in [place]. She lives with her daughter. She smokes approximately 3/4 of a pack of cigarettes daily and has for over 40 years. She drinks alcohol on a social basis and denies any illicit use of drugs. REVIEW OF SYSTEMS: GENERAL: Positive for subjective fever and malaise. Negative for weight changes. HEENT: Positive for some nasal congestion. Negative for sore throat, vision changes or ear pain. RESPIRATORY: As per History of Present Illness, including coughing, wheezing and shortness of breath. CARDIOVASCULAR: Negative for chest pain, palpitations or tachycardia. GASTROINTESTINAL: Negative for nausea, vomiting, diarrhea or constipation. GENITOURINARY: Negative for dysuria, hematuria or polyuria. NEUROLOGIC: Her daughter reports that she does have some mild confusion at times, especially when she does not wear her oxygen, but otherwise no headaches or seizures. PHYSICAL EXAMINATION: VITAL SIGNS: Temperature 98, heart rate 98, blood pressure 129/74, respiratory rate 20, O2 sat is 92% on 2 liters nasal cannula. GENERAL: This is a 77 year-old female patient who is lying in her hospital bed. She is in mild respiratory distress. HEENT: Normocephalic and atraumatic. Pupils are equal and reactive. Oropharynx is clear. NECK: Supple without mass. RESPIRATORY: Expiratory wheezing noted throughout with a few scattered rhonchi. No crackles. She is diminished at the bases. She is tachypneic. She has to speak in short phrases due to her shortness of breath. GASTROINTESTINAL: Abdomen is soft, nondistended, non-tender. Bowel sounds are positive. EXTREMITIES: No clubbing, cyanosis or edema. NEUROLOGIC: She is awake, alert and oriented times three. Cranial nerves II- XII are grossly intact. SKIN: Warm and dry. LABORATORY: CBC is basically within normal limits, except she does have a left shift on differential. Sodium 140, potassium 3.3, chloride 98, carbon dioxide 34, anion gap 11.3, BUN 21, creatinine 0.67, glucose 137, calcium 10.4, magnesium 1.9. Liver enzymes are basically within normal limits. Chest x-ray shows the cardiac silhouette is normal size. The aorta is partially calcified. Lungs are hyperinflated with scattered bibasilar atelectasis without focal or mass-like consolidation appreciated. No pleural effusion or pneumothorax. All other labs and films have been reviewed via the EMR. ASSESSMENT: 1. Acute on chronic obstructive pulmonary disease with hypercapnia and hypoxia in a chronic smoker with concerns for community acquired pneumonia. Oxygen saturation was 88% with a heart rate of greater than 100, systolic blood pressure of 90 and respiratory rate of 24 at her primary care physician's office prior to admission. 2. Electrolyte imbalance, mainly hypokalemia, hypochloridemia and hypocalcemia. 3. Tobacco abuse. 4. History of depression on antidepressants. PLAN: We will admit the patient to the hospital. I will give her Rocephin and azithromycin. She will be on an IV steroid taper. I will repeat her labs in the morning. I have ordered a PPI for ulcer prophylaxis and Lovenox for DVT prophylaxis. She will have breathing treatments both p.r.n. and scheduled. She will have aggressive pulmonary hygiene. We did extensive smoking cessation teaching and I have strongly encouraged her to stop smoking. Her daughter was at the bedside during this discussion. We will continue to monitor closely and follow as needed. Dr. Rodriguez is the collaborating physician available for consultation. #[id number] [facility]
[2018-04-29] MEDS ORDERED: SODIUM CHLORIDE 0.9% (FLUSH) 10 ML SYG IV PRN (12:18)
[2018-04-29] MEDS ORDERED: ALBUTEROL SULFATE 2.5 MG/3 ML VIAL NEB PRN (12:18)
[2018-04-29] MEDS ORDERED: IV SET AND CAP CHANGE INJ INJ SCH (12:30)
[2018-04-29] MEDS: IPRATROPIUM/ALBUTEROL 3 ML VIAL INH SCH ×3 (12:53→20:22)
--- NOTE | 2018-04-29 12:57 | RAD ---
EXAM DESCRIPTION: Chest,2 Views CLINICAL HISTORY: 77 years Female, copd COMPARISON: 06/11/2017. TECHNIQUE: Frontal and lateral views of the chest. IMPRESSION: Cardiac silhouette is normal in size. Aorta is partially calcified. Lungs are hyperinflated. Scattered bibasilar atelectasis without focal or masslike consolidation appreciated. No pleural effusion or pneumothorax. Thoracic spondylosis. Electronically signed by: Vick Wilkes MD 04/29/2018 12:56 PM [employer]
[2018-04-29] MEDS ORDERED: POTASSIUM CHLORIDE 20 MEQ TAB PO ONE (16:17)
[2018-04-29] MEDS ORDERED: KCL 20MEQ/0.45% NS 1,000 ML IVS ONE (16:17)
[2018-04-29] MEDS ORDERED: methylPREDNISolone SODIUM SUC 125 MG/2 ML VIAL IV ONE (16:19)
[2018-04-29] MEDS ORDERED: SODIUM CHLORIDE 0.9% 250ML 250 ML ONE (16:34)
[2018-04-29] MEDS ORDERED: SODIUM CHL 0.9% 50ML MIN-BAG+ 50 ML IVPB ONE (16:34)
[2018-04-29] MEDS ORDERED: cefTRIAXone SODIUM 1 GM VIAL ONE (16:35)
[2018-04-29] MEDS: cefTRIAXone SODIUM 1 GM in SODIUM CHL 0.9% 50ML MIN-BAG+ 50 ML IVPB SCH (16:35)
[2018-04-29] MEDS ORDERED: AZITHROMYCIN IV 500 MG VIAL IVPB ONE (16:36)
[2018-04-29] MEDS: AZITHROMYCIN IV 500 MG in SODIUM CHLORIDE 0.9% 250ML 250 ML IVPB SCH (17:06)
[2018-04-29] MEDS ORDERED: PANTOPRAZOLE SODIUM IV 40 MG VIAL ONE (19:24)
[2018-04-29] MEDS ORDERED: methylPREDNISolone SODIUM SUC 125 MG/2 ML VIAL ONE ×2 (19:24→19:25)
[2018-04-29] MEDS: ENOXAPARIN SODIUM 40 MG/0.4 ML SYG SUBCU SCH (20:34)
[2018-04-29] MEDS: SODIUM CHLORIDE 0.9% (FLUSH) 10 ML SYG IV SCH (20:35)
[2018-04-29] MEDS: methylPREDNISolone SODIUM SUC 125 MG/2 ML VIAL IV SCH (22:05)
[2018-04-30] MEDS: methylPREDNISolone SODIUM SUC 125 MG/2 ML VIAL IV SCH (05:56)
[2018-04-30] MEDS ORDERED: PANTOPRAZOLE SODIUM IV 40 MG VIAL IV SCH (06:30)
[2018-04-30] MEDS: SODIUM CHLORIDE 0.9% (FLUSH) 10 ML SYG IV SCH ×2 (08:37→20:35)
[2018-04-30] MEDS: IPRATROPIUM/ALBUTEROL 3 ML VIAL INH SCH ×4 (09:04→20:15)
[2018-04-30] MEDS: guaiFENesin ER TAB 600 MG TAB PO SCH ×2 (13:17→20:34)
--- NOTE | 2018-04-30 13:34 | PN ---
SUPERVISING PHYSICIAN: Jyoti Rodriguez MD DATE: 04/30/18 SUBJECTIVE: The patient is sitting up in her hospital bed. She is eating her lunch. She has some complaints of shortness of breath and coughing, but she does feel much less short of breath than she did yesterday. I have encouraged her to get up and walk in the hallways with her oxygen and she said she would do that this afternoon. Otherwise, no chest pain, nausea, vomiting, diarrhea or constipation. OBJECTIVE: VITAL SIGNS: Temperature 97.8. Heart rate 98. It has been as high as 107. Blood pressure 113/69. Respiratory rate 20 at rest. O2 saturation 92% on 2 liters nasal cannula. RESPIRATORY: Diminished breath sounds throughout with a few scattered expiratory wheezes in the apices. She is slightly tachypneic at times and she does get dyspneic with exertion. CARDIAC: Regular rate and rhythm. At times, she is tachycardic, especially with exertion. GASTROINTESTINAL: Abdomen is soft, nondistended, nontender. Bowel sounds are positive. EXTREMITIES: No cyanosis, clubbing or edema. NEUROLOGIC: Awake, alert and oriented times three. LABORATORY: CBC is basically within normal limits except she does have a left shift on her differential with neutrophils of 91.9%. Electrolytes are within normal limits, but are sugars are elevated at 191. Preliminary blood cultures are negative to date and her sputum culture is pending. All other labs and films have been reviewed via the EMR. ASSESSMENT: 1. Acute on chronic obstructive pulmonary disease with hypercapnia and hypoxia in a chronic smoker with concerns for community acquired pneumonia. Oxygen saturation was 88% with a heart rate of greater than 100, systolic blood pressure of 90 and respiratory rate of 24 at her primary care physician's office prior to admission. 2. Electrolyte imbalance, mainly hypokalemia, hypochloremia and hypocalcemia. 3. Tobacco abuse. 4. History of depression on antidepressants. PLAN: We will continue present supportive care and encourage good pulmonary hygiene. I have decreased her IV steroids and we will start her on p.o. prednisone tomorrow. Her lab is somewhat stabilized and we will watch her clinically. I have encouraged her to ambulate in the hallways and I have also ordered ambulation 4 times daily. Hopefully she can be discharged home tomorrow on a steroid taper as well as some antibiotics. She may benefit from pulmonary rehab as well as a pulmonary consult on discharge. We will continue to monitor the patient closely and follow as needed. [facility][id number] [facility]
[2018-04-30] MEDS: methylPREDNISolone SODIUM SUC 40 MG/ML VIAL IV SCH ×2 (13:46→22:14)
[2018-04-30] MEDS ORDERED: SODIUM CHLORIDE 0.9% 250ML 250 ML ONE (14:43)
[2018-04-30] MEDS ORDERED: SODIUM CHL 0.9% 50ML MIN-BAG+ 50 ML IVPB ONE (14:44)
[2018-04-30] MEDS ORDERED: cefTRIAXone SODIUM 1 GM VIAL ONE (14:44)
[2018-04-30] MEDS ORDERED: AZITHROMYCIN IV 500 MG VIAL IVPB ONE (14:44)
[2018-04-30] MEDS: cefTRIAXone SODIUM 1 GM in SODIUM CHL 0.9% 50ML MIN-BAG+ 50 ML IVPB SCH (15:52)
[2018-04-30] MEDS: AZITHROMYCIN IV 500 MG in SODIUM CHLORIDE 0.9% 250ML 250 ML IVPB SCH (16:29)
[2018-04-30] MEDS ORDERED: PANTOPRAZOLE SODIUM TAB 40 MG PO ONE (19:36)
[2018-04-30] MEDS: ENOXAPARIN SODIUM 40 MG/0.4 ML SYG SUBCU SCH (20:34)
[2018-05-01] MEDS: methylPREDNISolone SODIUM SUC 40 MG/ML VIAL IV SCH (05:58)
[2018-05-01] MEDS ORDERED: PANTOPRAZOLE SODIUM TAB 40 MG PO SCH (06:30)
[2018-05-01] MEDS: IPRATROPIUM/ALBUTEROL 3 ML VIAL INH SCH (08:27)
[2018-05-01] MEDS ORDERED: FORMOTEROL FUMARATE 20 MCG INH SCH (09:00)
[2018-05-01] MEDS ORDERED: predniSONE 20 MG TAB PO SCH (09:00)
[2018-05-01] MEDS ORDERED: hydroCHLOROthiazide 12.5 MG CAP PO SCH (09:00)
[2018-05-01] MEDS ORDERED: FLUoxetine HCL 20 MG CAP PO SCH (09:00)
[2018-05-01] MEDS: guaiFENesin ER TAB 600 MG TAB PO SCH (09:03)
[2018-05-01] MEDS: SODIUM CHLORIDE 0.9% (FLUSH) 10 ML SYG IV SCH (09:05)
[2018-05-01 10:02] VITALS: BP 145/76; TEMP 97.8; O2SAT 95
[2018-05-01] MEDS ORDERED: IMIPRAMINE HCL 25 MG TAB PO SCH (21:00)
--- NOTE | 2018-05-04 10:06 | DS ---
SUPERVISING PHYSICIAN: Issa Rodriguez MD ADMISSION DIAGNOSIS; 1. Acute on chronic obstructive pulmonary disease with hypercapnia and hypoxia in a chronic smoker with concerns for community acquired pneumonia. Oxygen saturation was 88% with a heart rate of greater than 100, systolic blood pressure of 90 and respiratory rate of 24 at her primary care physician's office prior to admission. 2. Electrolyte imbalance, mainly hypokalemia, hypochloridemia and hypocalcemia. 3. Tobacco abuse. 4. History of depression on antidepressants. DISCHARGE DIAGNOSIS: 1. Acute on chronic obstructive pulmonary disease with persistent hypercapnia and hypoxia in a chronic smoker with continued concerns for community acquired pneumonia with patient requiring chronic 02.. 2. Electrolyte imbalance with a mild hypokalemia, hypochloremia and hypocalcemia resolved with fluids. 3. Tobacco abuse. Encouraged to stop smoking. 4. History of depression on antidepressants. REASON FOR HOSPITALIZATION: This is a 77 year-old female patient who was seen in her primary care physician, Dr. Rodriguez's office today for shortness of breath that had been going on since before . She said she just felt weak since and initially had felt that it was due to the stress of the holidays. Her daughter noted that she has been extremely short of breath and she would not use her oxygen as much as she should have. She also did not have her nebulizer over at her daughter's house and she is staying there at this time. Her daughter said she would either go to the Emergency Room or she would have to go see her physician in the office. She got an appointment with Dr. Rodriguez today. At office visit she was tachypneic with respiratory rate in the mid 20s. Her O2 sat was 88%. Heart rate was greater than 100 and her systolic blood pressure was 90. Dr. Rodriguez felt that she needed to be admitted to the hospital due to exacerbation of her chronic obstructive pulmonary disease as well as a full workup. She was a direct admission from Dr. Rodriguez's office. LABORATORY STUDIES: White count on admission 7.300, at discharge was 5,600. Hemoglobin 13.1 and hematocrit 38.5, stable. Platelet count 166,000. Differential did show a left shift. Chemistries showed a low potassium at 3.3, chloride 98, carbon dioxide 34. BUN 21, creatinine 0.67. At discharge electrolytes had normalized with BUN 25, creatinine 0.1. Calcium 10.2 compared to admission of 10.4. Magnesium normal at 1.9. Liver functions all showed to be within normal limits. Urinalysis showed just a trace of intact blood, small amount of bilirubin, without within normal limits. MICROBIOLOGY: Blood cultures remained negative after 4 days. Sputum culture final result showed normal respiratory erika. RADIOLOGY: Chest x-ray initially on admission and per radiology interpretation showed large hyperinflated lungs with small bibasilar scattered atelectasis without focal mass consolidation. Please see that report for full details. HOSPITAL COURSE: Ms. Lancaster was admitted on 04/29/18 with concerns for community acquired pneumonia with exacerbation of chronic obstructive pulmonary disease. She was started on corticosteroids and aggressive pulmonary hygiene as well as coverage with antibiotics to include Rocephin and azithromycin. Clinically, she progressed well and was felt well enough to continue with outpatient management on day of discharge. PLAN: Ms. Lancaster was discharged on 05/01/18 to continue with outpatient management and to followup closely with Dr. Issa Rodriguez in the next 7 days or sooner if needed. She was to resume her home medications as prior. She was instructed to wear 02 as directed and to continue to stop smoking. She was to return to the hospital if she has worsening of symptoms. DISCHARGE DIET: Resume usual diet. ACTIVITIES: Increase as tolerated. MEDICATIONS PRESCRIBED AT DISCHARGE: 1. Azithromycin 250 mg for 3 days. 2. Cefdinir 300 mg twice a day, #16, no refills. 3. Guaifenesin 1200 mg twice a day for at least 5 days. 4. Medrol 4 mg tapered Dosepak. DISPOSITION: Patient discharged to care of family. CONDITION ON DISCHARGE: Stable and improving. [facility][id number] [facility]
== END 2018-05-01 13:20 | disposition home or self-care (01) | DRG 190 ==
LOC: MS 11:42
PROVIDERS: ADMIT Family Medicine; ATTEND Nurse Practitioner Family
DX: J44.1 Chronic obstructive pulmonary disease with (acute) exacerbation (principal); J18.9 Pneumonia, unspecified organism; R09.02 Hypoxemia; E87.6 Hypokalemia; E83.51 Hypocalcemia; F32.9 Major depressive disorder, single episode, unspecified; M81.0 Age-related osteoporosis without current pathological fracture; M85.80 Other specified disorders of bone density and structure, unspecified site; F17.210 Nicotine dependence, cigarettes, uncomplicated; Z85.3 Personal history of malignant neoplasm of breast; Z79.1 Long term (current) use of non-steroidal anti-inflammatories (NSAID); Z88.2 Allergy status to sulfonamides; Z88.8 Allergy status to other drugs, medicaments and biological substances; Z79.899 Other long term (current) drug therapy

== ENCOUNTER → 2018-06-10 | Outpatient (CLI) | payer OTHER ==
--- NOTE | 2018-06-10 14:52 | CT ---
EXAM DESCRIPTION: Abdoment/Pelvis w/o Contrast CLINICAL HISTORY: 77 years Female, HEMATURIA, UNSPECIFIED COMPARISON: None available. TECHNIQUE: Contiguous 3 mm axial images were obtained from the lung bases to the level of the proximal femora without the administration of intravenous or oral contrast. Sagittal and coronal reconstructions were reviewed. FINDINGS: Limited evaluation of the solid organs due to the lack of intravenous contrast. THORAX: The imaged lower thorax demonstrates no gross abnormality. LIVER: The liver demonstrates normal size and density with no intrahepatic biliary ductal dilatation. GALLBLADDER: Grossly unremarkable. PANCREAS: Appears normal with no cystic or solid lesions. SPLEEN: Normal ADRENAL GLANDS: Normal with no nodules or masses. KIDNEYS: Nonobstructive calculi are noted in both kidneys. In addition there is mild hydroureteronephrosis of the right kidney secondary to obstruction from a 5 mm calculus in the proximal ureter. The left ureter appears normal. STOMACH: Small hiatal hernia with evidence of reflux. The stomach is not well-distended limiting detailed evaluation. SMALL BOWEL: The small bowel loops demonstrate variable degrees of distention with no abnormal dilatation or other signs to suggest bowel obstruction. LARGE BOWEL: Numerous diverticuli are noted throughout the sigmoid colon. Focal short segment of narrowing with questionable soft tissue mass is noted in the proximal transverse colon. This is best visualized on axial image numbers 83 through 87, series 2. Mild constipation is identified as well. The appendix is well-visualized and appears normal No evidence of free intraperitoneal air or fluid. RETROPERITONEUM: The abdominal aorta is nonaneurysmal with mild atherosclerosis. The inferior vena cava is normal in size and caliber. Few subcentimeter retroperitoneal lymph nodes are identified. URINARY BLADDER:The urinary bladder is well-distended with no gross abnormality. The uterus and adnexa appear normal. ADDITIONAL FINDINGS: None. BONES: Moderate degenerative changes are identified in the visualized bones.No evidence of osteophytic or osteoblastic lesions. IMPRESSION: 1. Mild hydronephrosis of the right kidney secondary to obstruction from a 5 mm calculus in the proximal ureter. 2. Nonobstructive nephrolithiasis of both kidneys. 3. Small hiatal hernia with evidence of reflux. 4. Colonic diverticulosis. Constipation. 5. Focal short segment of circumferential narrowing with questionable soft tissue mass is noted in the proximal transverse colon. Colonoscopy can be performed for further evaluation if clinically concerned. This exam was performed according to our departmental dose-optimization program, which includes automated exposure control, adjustment of the mA and/or kV according to patient size and/or use of iterative reconstruction technique. Electronically signed by: Maile Campos MD 06/10/2018 2:50 PM [facility]
== END ==
LOC: CT 12:03
PROVIDERS: ATTEND Family Medicine
DX: N13.2 Hydronephrosis with renal and ureteral calculous obstruction (principal); K57.30 Diverticulosis of large intestine without perforation or abscess without bleeding; K44.9 Diaphragmatic hernia without obstruction or gangrene; K59.00 Constipation, unspecified

== ENCOUNTER 2018-06-15 21:17 | Emergency (ER) | payer OTHER ==
[2018-06-15 22:00] VITALS: TEMP 98.6
--- NOTE | 2018-06-15 22:23 | ED.PDOC ---
History of Present Illness - General Chief Complaint: Neuro Symptoms/Deficits Stated Complaint: altered mental status Time Seen by Provider: 06/15/18 22:09 Source: patient, family Exam Limitations: no limitations - History of Present Illness Initial Comments: SHE WAS RECENTLY DIAGNOSED WITH A KIDNEY STONE. SINCE YESTERDAY SHE SEEMS CONFUSED. TODAY THE DAUGHTER YOVANI THE PCP AND TOLD THEM TO COME TO THE ED. THE PATIENT REFUSED. THE CONFUSION HAS PERSISTED SO THE FAMILY BROUGHT HER IN. DENIES ANY FEVER. SHE ALSO SEVERAL MONTHS AGO HAD A BREAST LUMPECTOMY FOR A LOCALIZED LESION. THE PATIENT HAS BEEN ASYMPTOMATIC SINCE THEN. Severity: mild Worsening Factors: nothing Associated Symptoms: denies symptoms Allergies/Adverse Reactions: Allergies Codeine Allergy (Verified 06/15/18 22:00) Meperidine [From Demerol HCl] Allergy (Verified 06/10/17 17:28) Sulfa Antibiotics Allergy (Verified 06/15/18 22:00) [place] Adverse Reaction (Uncoded 06/10/17 18:34) Home Medications: Ambulatory Orders Albuterol Sulfate Nebs [Proventil Nebs] 2.5 mg INH DAILY 06/10/17 Fluoxetine HCl [Prozac] 20 mg PO DAILY 06/10/17 Hydrochlorothiazide 12.5 mg PO DAILY 06/10/17 Imipramine HCl 100 mg PO BEDTIME 06/10/17 Formoterol Fumarate [Perforomist] 20 mcg INH Q12H 04/29/18 Anastrozole [Arimidex] 1 mg PO BEDTIME 05/01/18 Azithromycin 250 mg PO DAILY #3 tab 05/01/18 Cefdinir [Omnicef] 300 mg PO BID #16 cap 05/01/18 Gabapentin 100 mg PO BEDTIME 05/01/18 Methylprednisolone [Medrol Dose Wilmer] 4 mg PO DAILY 6 Days #21 tab 05/01/18 guaiFENesin ER TAB [Mucinex Tab] 1,200 mg PO BID tab 05/01/18 Nitrofurantoin Monohydrate Mac [Macrobid] 100 mg PO BID #20 capsule 06/15/18 Review of Systems - Review of Systems Constitutional: States: no symptoms reported EENTM: States: no symptoms reported Respiratory: States: no symptoms reported Cardiology: States: no symptoms reported Gastrointestinal/Abdominal: States: no symptoms reported Genitourinary: States: no symptoms reported Musculoskeletal: States: no symptoms reported Skin: States: no symptoms reported Neurological: States: no symptoms reported Past Medical History (General) - Patient Medical History Hx Seizures: No Hx Stroke: No Hx Dementia: No Hx Asthma: No Hx of COPD: Yes Hx Cardiac Disorders: No Hx Congestive Heart Failure: No Hx Pacemaker: No Hx Hypertension: No Hx Thyroid Disease: No Hx Diabetes: No Hx Gastroesophageal Reflux: No Hx Renal Disease: No Hx Cancer: Yes - breast Hx of HIV: No Hx Hepatitis C: No Hx MRSA: No - Vaccination History Hx Tetanus, Diphtheria Vaccination: No Hx Influenza Vaccination: No Hx Pneumococcal Vaccination: Yes - Social History Hx Tobacco Use: Yes Hx Chewing Tobacco Use: No Hx Alcohol Use: No Hx Substance Use: No Hx Depression: Yes Hx Physical Abuse: No Hx Emotional Abuse: No Hx Suspected Abuse: No - Female History Patient : No Family Medical History - Family History Mother Family History: Unknown Physical Exam - Physical Exam General Appearance: Alert, Well Developed, Well Groomed, Well Hydrated Eye Exam: bilateral normal Ears, Nose, Throat: hearing grossly normal, normal ENT inspection Neck: non-tender, full range of motion Respiratory: chest non-tender, lungs clear, normal breath sounds, no respiratory distress, no accessory muscle use Cardiovascular/Chest: normal peripheral pulses, regular rate, rhythm, no edema, no gallop Gastrointestinal/Abdominal: normal bowel sounds, non tender, soft, no organomegaly, no pulsatile mass Back Exam: no CVA tenderness Extremity: normal range of motion, non-tender Skin Exam: normal color Lymphatic: no adenopathy Progress - Results/Orders Results/Orders: 06/15/18 22:01 Urine Culture Stat Laboratory Results WBC 4.8 K/mm3 (4.8-10.8) 06/15/18 22:26 RBC 3.83 M/mm3 (4.20-5.40) L 06/15/18 22:26 Hgb 12.9 gm/dL (12.0-16.0) 06/15/18 22:26 Hct 37.5 % (36.0-47.0) 06/15/18 22:26 MCV 97.8 fl (81.0-99.0) 06/15/18 22:26 MCH 33.7 pg (27.0-31.0) H 06/15/18 22:26 MCHC 34.4 g/dL (33.0-37.0) 06/15/18 22:26 RDW 13.4 % (11.5-14.5) 06/15/18 22:26 Plt Count 172 K/mm3 (130-400) 06/15/18 22:26 MPV 8.4 fl (7.40-10.4) 06/15/18 22:26 Absolute Neuts (auto) 3.50 K/uL (1.8-6.8) 06/15/18 22:26 Absolute Lymphs (auto) 0.70 K/uL (1.0-3.4) L 06/15/18 22:26 Absolute Monos (auto) 0.50 K/uL (0.2-0.8) 06/15/18 22: Absolute Eos (auto) 0.10 K/uL (0.0-0.4) 06/15/18 22: Absolute Basos (auto) 0.00 K/uL (0.0-0.1) 06/15/18 22: Neutrophils % 73.4 % (42.0-78.0) 06/15/18 22: Lymphocytes % 14.5 % (20.0-50.0) L 06/15/18 22: Monocytes % 9.4 % (2.0-9.0) H 06/15/18 22:26 Eosinophils % 2.3 % (1.0-5.0) 06/15/18 22:26 Basophils % 0.4 % (0.0-2.0) 06/15/18 22:26 Sodium 137 mmol/L (135-145) 06/15/18 22:26 Potassium 3.6 mmol/L (3.6-5.0) 06/15/18 22:26 Chloride 98 mmol/L (101-111) L 06/15/18 22:26 Carbon Dioxide 29 mmol/L (21-31) 06/15/18 22:26 Anion Gap 13.6 (12-18) 06/15/18 22:26 BUN 32 mg/dL (7-18) H 06/15/18 22:26 Creatinine 1.36 mg/dL (0.6-1.3) H 06/15/18 22:26 BUN/Creatinine Ratio 23.5 (10-20) H 06/15/18 22:26 Random Glucose 115 mg/dL (70-105) H 06/15/18 22: Serum Osmolality 281.6 mOsm/L (275-295) 06/15/18: Calcium 10.4 mg/dL (8.4-10.2) H 06/15/18: Total Bilirubin 0.5 mg/dL (0.2-1.0) 06/15/18 22: AST 14 IU/L (10-42) 06/15/18: ALT 12 IU/L (10-60) 06/15/18: Alkaline Phosphatase 75 IU/L (42-121) 06/15/18: Serum Total Protein 7.3 gm/dL (6.4-8.2) 06/15/18: Albumin 3.9 g/dl (3.2-5.5) 06/15/18: Globulin 3.4 gm/dL (2.3-3.5) 06/15/18: Albumin/Globulin Ratio 1.1 (1.1-1.9) 06/15/18: Urine Color Yellow (Yellow) 06/15/18 22: Urine Appearance Clear (Clear) 06/15/18 22: Urine pH 5.5 (4.5-7.8) 06/15/18 22: Ur Specific [place] >= 1.030 (1.005-1.030) 06/15/18 22: Urine Protein 30 mg/dL 06/15/18 22: Urine Glucose (UA) Negative mg/dL (Negative) 06/15/18 22: Urine Ketones 15 mg/dL (NEGATIVE) H 06/15/18 22: Urine Blood Moderate (Negative) H 06/15/18 22: Urine Nitrite Negative 06/15/18 22: Urine Bilirubin Small (NEGATIVE) H 06/15/18 22: Urine Urobilinogen 1.0 mg/dL (0.2-1.0) 06/15/18 22: Ur Leukocyte Esterase Small (Negative) H 06/15/18 22:01 Urine RBC 5-10 /hpf H 06/15/18 22:01 Urine WBC 5-10 /hpf H 06/15/18 22:01 Ur Epithelial Cells 5-10 /hpf 06/15/18 22:01 Calcium Oxalate Crystal 1+ /hpf 02/18/19 22:01 Urine Bacteria 1+ 06/15/18 22:01 CT BRAIN: NO ACUTE FINDINGS. Departure - Departure Clinical Impression: Confusion UTI (urinary tract infection) Qualifiers: Urinary tract infection type: site unspecified Hematuria presence: with hematuria Qualified Code(s): N39.0 - Urinary tract infection, site not specified; R31.9 - Hematuria, unspecified Time of Disposition: 23:27 Disposition: Discharge to Home or Self Care Condition: Good Departure Forms: ED Discharge - Pt. Copy, Patient Portal Self Enrollment Instructions: Urinary Tract Infection, Adult (DC) Referrals: GENIA DELGADO MD [Primary Care Provider] - 1-2 Weeks Prescriptions: Nitrofurantoin Monohydrate Mac [Macrobid] 100 mg PO BID #20 capsule Home Medications: Ambulatory Orders Albuterol Sulfate Nebs [Proventil Nebs] 2.5 mg INH DAILY 06/10/17 Fluoxetine HCl [Prozac] 20 mg PO DAILY 06/10/17 Hydrochlorothiazide 12.5 mg PO DAILY 06/10/17 Imipramine HCl 100 mg PO BEDTIME 06/10/17 Formoterol Fumarate [Perforomist] 20 mcg INH Q12H 04/29/18 Anastrozole [Arimidex] 1 mg PO BEDTIME 05/01/18 Azithromycin 250 mg PO DAILY #3 tab 05/01/18 Cefdinir [Omnicef] 300 mg PO BID #16 cap 05/01/18 Gabapentin 100 mg PO BEDTIME 05/01/18 Methylprednisolone [Medrol Dose Wilmer] 4 mg PO DAILY 6 Days #21 tab 05/01/18 guaiFENesin ER TAB [Mucinex Tab] 1,200 mg PO BID tab 05/01/18 Nitrofurantoin Monohydrate Mac [Macrobid] 100 mg PO BID #20 capsule 06/15/18
--- NOTE | 2018-06-15 23:06 | CT ---
PROCEDURE: Head CLINICAL HISTORY: 77 years Female AMS- HX OF BREAST CANCER COMPARISON: None. TECHNIQUE: Contiguous axial CT images obtained through the brain without IV contrast. This exam was performed according to our department optimization program which includes automated exposure control, adjustment of the mA and/or kv according to patient size and/or use of iterative reconstruction technique. FINDINGS: The ventricles and sulci are within normal limits for the patient's age. Cyst or old lacunar infarct in the medial left temporal lobe. Mild microvascular ischemic change. No midline shift or mass effect. No masses identified. No acute intracranial hemorrhage. No fluid or significant mucosal thickening in the visualized paranasal sinuses. No depressed calvarial fractures. IMPRESSION: No acute intracranial abnormality is identified. Electronically signed by: Kathy Barkley MD 06/15/2018 11:02 PM [facility]
[2018-06-15] MEDS ORDERED: NITROFURANTOIN MONOHYDRATE MAC 100 MG CAP ONE (23:56)
[2018-06-15] MEDS ORDERED: NITROFURANTOIN MONOHYDRATE MAC 100 MG CAP PO ONE (23:57)
[2018-06-16 00:08] VITALS: BP 140/73; O2SAT 95
== END 2018-06-16 00:08 | disposition home or self-care (01) ==
LOC: ER 21:17
DX: R41.0 Disorientation, unspecified (principal); N39.0 Urinary tract infection, site not specified; F32.9 Major depressive disorder, single episode, unspecified; J44.9 Chronic obstructive pulmonary disease, unspecified; Z87.891 Personal history of nicotine dependence; Z85.3 Personal history of malignant neoplasm of breast; Z79.899 Other long term (current) drug therapy; Z88.5 Allergy status to narcotic agent; Z88.2 Allergy status to sulfonamides

== ENCOUNTER → 2018-06-17 | Outpatient (CLI) | payer OTHER | LOC: GMAE 10:40 | PROVIDERS: ATTEND Family Medicine | DX: R41.82 Altered mental status, unspecified (principal) ==

== ENCOUNTER → 2018-06-19 | Outpatient (CLI) | payer OTHER ==
--- NOTE | 2018-06-19 15:56 | MRI ---
EXAM DESCRIPTION: Brain w/oContrast CLINICAL HISTORY: ALTERED MENTAL STATUS COMPARISON: None available TECHNIQUE: Non contrast MRI of the brain is performed according to our usual protocol including multiplanar multi sequence technique. FINDINGS: Sagittal T1 images show intact corpus callosum. Normal pituitary gland with normal T1 appearance of the kathryn and medulla and upper cervical cord. Normal signal intensity within the clivus and calvarium. Axial T2 fat sat images reveal preservation of intracranial vascular flow voids. Normal cobb matter T2 signal intensity. Extensive white matter hyperintensities. Prominent ventricles and sulci consistent with age-related cerebral volume loss. The globes appear intact and symmetrical. No abnormal fluid levels in the paranasal sinuses, tympanic cavities or mastoid air cells. Mucous retention cyst in the right maxillary sinus 1.5 cm. Axial flair images show extensive multifocal and confluent areas of increased signal intensity in the cerebral white matter bilaterally consistent with chronic microvascular ischemic changes. Old lacunar infarcts in the kathryn and basal ganglia. Diffusion weighted images are negative for focal intense increased signal intensity in the brain parenchyma to suggest restricted diffusion. ADC mapping is negative. Axial T1 images show normal cobb-white matter differentiation. No high signal intensity hemorrhagic lesion of the brain parenchyma. No subdural hematoma. Except for mild incidental signal loss in the basal ganglia, the axial susceptibility weighted images are negative for focal signal loss to suggest abnormal brain parenchymal calcification or hemosiderin deposition. IMPRESSION: Senescent brain with extensive chronic microvascular ischemic changes in the cerebral white matter. No acute intracranial pathologic process. Electronically signed by: Lane Cloud MD 06/19/2018 3:53 PM [employer]
== END ==
LOC: MRI 10:03
PROVIDERS: ATTEND Family Medicine
DX: R41.82 Altered mental status, unspecified (principal)

== ENCOUNTER 2019-02-12 18:55 | Inpatient (IN) | payer MEDICARE, OTHER ==
--- NOTE | 2019-02-12 20:12 | RAD ---
EXAM DESCRIPTION: Chest,1 View CLINICAL HISTORY: 78 years Female ams COMPARISON: April 29, 2018. TECHNIQUE: AP view of the chest was obtained. FINDINGS: Cardiac silhouette is enlarged. Central vessels are indistinct. Increased interstitial findings lung colmenares bilaterally. Patchy airspace opacities bilaterally left greater than right. No effusions bilaterally. No pneumothorax. Prominent vasculature superior mediastinum. IMPRESSION: Enlarged heart with mild central congestion. No new infiltrates seen. Chronic changes. Electronically signed by: Morenita Robles MD 02/12/2019 8:10 PM CDT
--- NOTE | 2019-02-12 20:27 | CT ---
EXAM: CT Head Without Intravenous Contrast CLINICAL HISTORY: The patient is 78 years old and is Female; ams since this am TECHNIQUE: Axial computed tomography images of the head/brain without intravenous contrast. Sagittal and coronal reformatted images were created and reviewed. This CT exam was performed using one or more of the following dose reduction techniques: automated exposure control, adjustment of the mA and/or kV according to patient size, and/or use of iterative reconstruction technique. COMPARISON: June 15, 2018 FINDINGS: Brain: Periventricular and deep white matter hypodensities, most commonly due to nonspecific white matter chronic microvascular ischemia. Mild cerebral atrophy. No hemorrhage. Ventricles: Unremarkable. No ventriculomegaly. Bones/joints: Unremarkable. No acute fracture. Soft tissues: Unremarkable. Vasculature: Vascular calcifications. Sinuses: Unremarkable as visualized. No acute sinusitis. Mastoid air cells: Unremarkable as visualized. No mastoid effusion. IMPRESSION: No acute intracranial findings. Mild cerebral atrophy and nonspecific chronic microvascular ischemic changes. Electronically signed by: Antelmo Bernard MD 02/12/2019 8:26 PM CDT
[2019-02-12] MEDS ORDERED: AZITHROMYCIN IV 500 MG in SODIUM CHLORIDE 0.9% 250ML 250 ML IVPB ONE (20:41)
[2019-02-12] MEDS ORDERED: IPRATROPIUM/ALBUTEROL 3 ML VIAL NEB ONE (20:41)
[2019-02-12] MEDS ORDERED: cefTRIAXone SODIUM 1 GM in SODIUM CHL 0.9% 50ML MIN-BAG+ 50 ML IVPB ONE (20:41)
[2019-02-12] MEDS ORDERED: predniSONE 20 MG TAB PO ONE (20:41)
--- NOTE | 2019-02-12 20:47 | ED.PDOC ---
History of Present Illness - General Chief Complaint: Neuro Symptoms/Deficits Stated Complaint: confusion, trouble walking Time Seen by Provider: 02/12/19 19:12 Source: family Exam Limitations: no limitations - History of Present Illness Initial Comments: the patient is a 78-year-old female presenting to emergency room by EMS secondary to aggressive confusion over the last 2-3 days according to her son-in-law and daughter who live with her. The patient has had one similar episode like this back in May 2017. It occurred with a COPD exacerbation. The patient has had an increased cough over the last few days and some wheezing. No definite fevers. The patient has not been wearing her oxygen. The patient shows no focal neurological deficits per her focus is very poor. She can only follow one-step instructions. Sometime she can tell you her name sometimes not. Sometimes she can tell you where she is and sometimes not. She is able to ambulate though her gait is a little bit unsteady. She moves all extremities well. Strength appears to be grossly preserved. Reflexes appear to be intact. She appears to speak simple words clearly. No difficulty with swallowing. No evidence of syncope or falls. No evidence of increased pain. She does have scattered wheezes in her lung colmenares. Timing/Duration: other - 2-3 days Severity: moderate Improving Factors: nothing Worsening Factors: nothing Allergies/Adverse Reactions: Allergies Codeine Allergy (Verified 06/15/18 22:00) Meperidine [From Demerol HCl] Allergy (Verified 06/10/17 17:28) Sulfa Antibiotics Allergy (Verified 06/15/18 22:00) Crawford Adverse Reaction (Uncoded 06/10/17 18:34) Home Medications: Ambulatory Orders Albuterol Sulfate Nebs [Proventil Nebs] 2.5 mg INH DAILY 06/10/17 Fluoxetine HCl [Prozac] 20 mg PO DAILY 06/10/17 Hydrochlorothiazide 12.5 mg PO DAILY 06/10/17 Imipramine HCl 100 mg PO BEDTIME 06/10/17 Formoterol Fumarate [Perforomist] 20 mcg INH Q12H 04/29/18 Anastrozole [Arimidex] 1 mg PO BEDTIME 05/01/18 Azithromycin 250 mg PO DAILY #3 tab 05/01/18 Cefdinir [Omnicef] 300 mg PO BID #16 cap 05/01/18 Gabapentin 100 mg PO BEDTIME 05/01/18 Methylprednisolone [Medrol Dose Wilmer] 4 mg PO DAILY 6 Days #21 tab 05/01/18 guaiFENesin ER TAB [Mucinex Tab] 1,200 mg PO BID tab 05/01/18 Nitrofurantoin Monohydrate Mac [Macrobid] 100 mg PO BID #20 capsule 06/15/18 Review of Systems - Review of Systems Review of Systems: 02/12/19 20:47 the patient is unable to give a review of systems all information is obtained from family Constitutional: States: malaise Respiratory: States: cough, wheezing Cardiology: States: no symptoms reported Gastrointestinal/Abdominal: States: no symptoms reported Genitourinary: States: no symptoms reported Musculoskeletal: States: no symptoms reported Skin: States: no symptoms reported Neurological: States: other - onfusion Endocrine: States: no symptoms reported Unable to Obtain Due To: condition All other Systems: No Change from Baseline Past Medical History (General) - Patient Medical History Hx Seizures: No Hx Stroke: No Hx Dementia: No Hx Asthma: No Hx of COPD: Yes Hx Cardiac Disorders: No Hx Congestive Heart Failure: No Hx Pacemaker: No Hx Hypertension: No Hx Thyroid Disease: No Hx Diabetes: No Hx Gastroesophageal Reflux: No Hx Renal Disease: No Hx Cancer: Yes - breast Hx of HIV: No Hx Hepatitis C: No Hx MRSA: No - Vaccination History Hx Tetanus, Diphtheria Vaccination: Yes Hx Influenza Vaccination: Yes Hx Pneumococcal Vaccination: Yes Immunizations Up to Date: Yes - Social History Hx Tobacco Use: Yes Hx Chewing Tobacco Use: No Hx Alcohol Use: No Hx Substance Use: No Hx Depression: No Hx Physical Abuse: No Hx Emotional Abuse: No Hx Suspected Abuse: No - Activities of Daily Living Hospice Agency (if applicable):: None - Female History Patient is a Female of Child Bearing Age (10 -59 yrs old): No Patient : No - Triage Comment ED Triage Comment: pt transported into ER via EMS. pt able to follow simple commands with ease, all neuro motor movements equal. pt unable to answer questions, just laughing and saying "yes" or "no" when asked a question. pt oxygen sat up to 94% with o2 @ 2L/min. Family Medical History - Family History Mother Family History: Unknown Physical Exam - Physical Exam General Appearance: Alert, No apparent distress Eye Exam: bilateral normal Ears, Nose, Throat: hearing grossly normal, normal pharynx Neck: full range of motion, supple Respiratory: no respiratory distress, no accessory muscle use, wheezing Cardiovascular/Chest: normal peripheral pulses, regular rate, rhythm, no edema Peripheral Pulses: radial,right: 2+, radial,left: 2+, dorsalis pedis,right: 2+, dorsalis pedis,left: 2+ Gastrointestinal/Abdominal: non tender, soft Rectal Exam: deferred Back Exam: no CVA tenderness, no vertebral tenderness Extremity: non-tender, normal inspection, no pedal edema, no calf tenderness, normal capillary refill 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 Skin Exam: normal color Comments: Vital Signs - 24 hr 02/12/19 02/12/19 19:11 19:25 Temperature 99.7 F H Pulse Rate [ 99 H 99 H monitor] Respiratory 20 20 Rate Blood Pressure 121/99 [Left Arm] O2 Sat by Pulse 86 L Oximetry Progress - Progress Progress: 02/12/19 20:50 the patient's is 78-year-old female presenting to the emergency room with what appears to be a second episode most likely of hypoxic encephalopathy. The patient does need to wear her oxygen. She is going to be brought into the hospital to make sure that that happens. She also appears to be having a COPD exacerbation and is going to be placed on Rocephin, azithromycin and prednisone. She will also receive breathing treatments. She is breathing better already after one here. Admit for continued care. CT scan of the head shows no evidence of any acute ischemic or hemorrhagic pathology. 02/12/19 20:51 merle caro [id number] - Results/Orders Results/Orders: urinalysis is still pending. EKG shows normal sinus rhythm at 92 bpm with occasional PVCs. Poor R-wave progression in anterior leads. No definitive ST segment or T-wave changes indicative of acute ischemia. Normal axis. Mild left atrial dilation. Borderline prolonged QT interval. Chest x-ray shows very mild scattered patchy infiltrates. Laboratory Results - last 24 hr 02/12/19 02/12/19 02/12/19 17:23 17:23 17:23 WBC 3.8 L RBC 4.33 Hgb 14.5 Hct 42.2 MCV 97.4 MCH 33.4 H MCHC 34.3 RDW 13.2 Plt Count 79 L MPV 9.9 Absolute Neuts (auto) 3.10 Absolute Lymphs (auto) 0.30 L Absolute Monos (auto) 0.30 Absolute Eos (auto) 0.00 Absolute Basos (auto) 0.00 Neutrophils % 83.1 H Lymphocytes % 8.6 L Monocytes % 8.0 Eosinophils % 0.1 L Basophils % 0.2 PT INR PTT (SP) Sodium 135 Potassium 3.4 L Chloride 97 L Carbon Dioxide 26 Anion Gap 15.4 BUN 16 Creatinine 0.70 BUN/Creatinine Ratio 22.9 H Random Glucose 131 H Serum Osmolality 273.1 L Lactic Acid 0.7 Calcium 9.5 Magnesium 1.8 Total Bilirubin 0.7 AST 21 ALT 14 Alkaline Phosphatase 73 Creatine Kinase 54 CK-MB (CK-2) 2.3 CK-MB (CK-2) % Not Reportable Troponin I 0.02 B-Natriuretic Peptide 80.8 Serum Total Protein 6.6 Albumin 4.0 Globulin 2.6 Albumin/Globulin Ratio 1.5 TSH 02/12/19 02/12/19 17:23 17:23 WBC RBC Hgb Hct MCV MCH MCHC RDW Plt Count MPV Absolute Neuts (auto) Absolute Lymphs (auto) Absolute Monos (auto) Absolute Eos (auto) Absolute Basos (auto) Neutrophils % Lymphocytes % Monocytes % Eosinophils % Basophils % PT 10.1 INR 1.01 PTT (SP) 43.4 H Sodium Potassium Chloride Carbon Dioxide Anion Gap BUN Creatinine BUN/Creatinine Ratio Random Glucose Serum Osmolality Lactic Acid Calcium Magnesium Total Bilirubin AST ALT Alkaline Phosphatase Creatine Kinase CK-MB (CK-2) CK-MB (CK-2) % Troponin I B-Natriuretic Peptide Serum Total Protein Albumin Globulin Albumin/Globulin Ratio TSH 1.[address] is negative for acute pathology. - EKG/XRAY/CT CT Ordered: Yes Departure - Departure Clinical Impression: Hypoxic encephalopathy, Acute bronchitis with COPD Disposition: Admit Patient Condition: Fair Departure Forms: ED Discharge - Pt. Copy, Patient Portal Self Enrollment Referrals: GENIA DELGADO MD [Primary Care Provider] - 1-2 Weeks Home Medications: Ambulatory Orders Albuterol Sulfate Nebs [Proventil Nebs] 2.5 mg INH DAILY 06/10/17 Fluoxetine HCl [Prozac] 20 mg PO DAILY 06/10/17 Hydrochlorothiazide 12.5 mg PO DAILY 06/10/17 Imipramine HCl 100 mg PO BEDTIME 06/10/17 Formoterol Fumarate [Perforomist] 20 mcg INH Q12H 04/29/18 Anastrozole [Arimidex] 1 mg PO BEDTIME 05/01/18 Azithromycin 250 mg PO DAILY #3 tab 05/01/18 Cefdinir [Omnicef] 300 mg PO BID #16 cap 05/01/18 Gabapentin 100 mg PO BEDTIME 05/01/18 Methylprednisolone [Medrol Dose Wilmer] 4 mg PO DAILY 6 Days #21 tab 05/01/18 guaiFENesin ER TAB [Mucinex Tab] 1,200 mg PO BID tab 05/01/18 Nitrofurantoin Monohydrate Mac [Macrobid] 100 mg PO BID #20 capsule 06/15/18 Decision To Admit - Decistion To Admit Decision to Admit Reason: Medical Nature Decision to Admit Date: 02/12/19 Decision to Admit Time: 20:51
[2019-02-12] MEDS ORDERED: cefTRIAXone SODIUM 1 GM VIAL ONE (21:31)
[2019-02-12] MEDS ORDERED: AZITHROMYCIN IV 500 MG VIAL IVPB ONE (21:31)
[2019-02-12] MEDS ORDERED: SODIUM CHLORIDE 0.9% 250ML 250 ML ONE (21:32)
[2019-02-12] MEDS ORDERED: SODIUM CHL 0.9% 50ML MIN-BAG+ 50 ML IVPB ONE (21:32)
--- NOTE | 2019-02-12 22:39 | HP ---
SUPERVISING PHYSICIAN: Ap Veliz M.D. CHIEF COMPLAINT: Confusion with trouble walking. HISTORY OF PRESENT ILLNESS: Ms. Lancaster is a 78 year-old female patient that presented to the Emergency Room earlier last night by EMS due to some aggressive confusion that had been occurring over the last 2 to 3 days. Her son-in-law and daughter live with her and report that the patient has been progressively showing worsening symptoms. She has had similar symptoms in the past in May 2017 which was associated with chronic obstructive pulmonary disease exacerbation. It was noted that the patient had increasing cough over the last several days along with some wheezing but no definitive fevers and that she had not been wearing her oxygen. She also reports that she continues to smoke and that throughout the night she has to go outside and smoke, and therefore she has been taking her oxygen off. In the E. R. she was showing to be without any focal neurological deficits but was showing some issues with focusing and could only follow one step questions. It was noted that she was able to ambulate although her gait was noted to be a little unsteady. Her lab work showed she had a white count of 3,800 with a left shift. Hemoglobin 14.5, hematocrit 42.2. Chemistries show just a mildly low potassium at 3.4 with BUN 16, creatinine 0.7. Liver functions are all within normal limits. Lactic acid at 0.7. Troponin was at 0.02. TSH was normal at 1.29. Urinalysis just showed a trace of blood with 40 of ketones. Microscopic revealed 3 to 5 WBCs, 0 RBCs, no bacteria. Chest x-ray in the E. R. showed enlarged heart with central congestion but no new infiltrates were definitely seen. There was note of increased interstitial findings in the lung colmenares bilaterally with some patchy airspace opacities bilaterally with left greater than right. CT of the head without contrast showed no acute intracranial findings. Vital signs showed on admission showed that she was running a low-grade fever of 99.7 and was 86% on room air. Saturations improving to 95% on 2 liters nasal cannula. In the E. R. she was started on Rocephin, azithromycin and some prednisone as well as given breathing treatments. It was noted that she had some improvement in her mentation after treatment and therefore is going to be admitted for COPD exacerbation with acute mental status secondary to hypoxic encephalopathy. She was admitted in stable condition. PAST MEDICAL HISTORY: 1. Chronic obstructive pulmonary disease. 2. Osteoporosis. 3. Osteopenia. 4. Depression. 5. Breast cancer treated with cure with a left mastectomy. PAST SURGICAL HISTORY: 1. Excisional breast biopsy in 1985 and 1986 with an additional biopsy in 2017 with noted breast cancer with a left mastectomy. 2. Hammertoe correction. HOME MEDICATIONS: 1. Meloxicam 15 mg daily. 2. Imipramine 50 mg at bedtime. 3. Hydrochlorothiazide 12.5 mg daily. 4. Gabapentin 100 mg at bedtime. 5. Perforomist 20 mcg every 12 hours. 6. Prozac 20 mg daily and 20 mg at bedtime. 7. Fexofenadine 60 mg daily. 8. Arimidex 1 mg at bedtime. 9. Proventil nebs 2.5 mg every 4 hours as needed. ALLERGIES: CODEINE, DEMEROL, SULFA ANTIBIOTICS AND CITRUS. FAMILY HISTORY: Positive for breast cancer, prostate and pancreatic cancer. SOCIAL HISTORY: The patient is . She lives in [place]. She lives with her daughter. She smokes approximately 3/4 to 1 pack of cigarettes daily and has for well over 40 years. She drinks alcohol on a social basis and denies any illicit use of drugs. REVIEW OF SYSTEMS: CONSTITUTIONAL: General malaise. Denies any fevers. RESPIRATORY: Noted wheezing and coughing with some increasing shortness of breath over the last several days. CARDIOVASCULAR: Denies any chest pains, palpitations or syncopal episodes. GASTROINTESTINAL: Negative for any nausea, vomiting, diarrhea, constipation or abdominal pains. GENITOURINARY: Denies any dysuria, hematuria or polyuria. MUSCULOSKELETAL: No muscle aches or joint swelling. SKIN: No reported lesions, rashes or moles. NEUROLOGIC: As noted on admission with confusion but denies any ataxia, seizures or other motor focal deficits. PHYSICAL EXAMINATION: VITAL SIGNS: Initially on admission in the E. R. temperature is 99.7, pulse 99, blood pressure 121/99, respirations 20, satting 86% on room air. After breathing treatments on 2 liters nasal cannula satting 95%. GENERAL: The patient appeared to be resting comfortably with no obvious acute distress. At time of my exam she was alert and oriented. HEENT: Tympanic membranes are clear bilaterally. Oropharynx was pink and moist without any lesions. NECK: Supple, non-tender. Full range of motion. No jugular venous distention. CHEST: Lung sounds were fairly clear, just some wheezing heard in the left upper lung colmenares more prominent on the posterior aspect with no rales or rhonchi. CARDIOVASCULAR: Regular rate and rhythm without appreciable murmurs, gallops, or rubs. ABDOMEN: Soft, non-tender. Positive bowel sounds. EXTREMITIES: Without any clubbing, cyanosis or edema. BACK: Exam was without any CVA or vertebral tenderness. NEUROLOGIC: Cranial nerves II-XII are grossly intact with no motor or sensory deficits. Facial features were symmetrical. Extraocular movements are within normal limits. There is no notable nystagmus. She was alert and oriented times three on my exam. SKIN: Warm, pink and dry. LABORATORY: White count was 3,800, hemoglobin 14, hematocrit 41.0, platelet count was low at 77,000. Differential did show a left shift. Coagulation studies showed a normal PT of 1 with PTT of 43.4. Chemistries showed a normal sodium at 135 with potassium 3.4, BUN 16, creatinine 0.7. Liver functions are all within normal limits. Lactic acid 0.7. TSH was normal at 1.29. Troponin was showing to be within normal limits as well as BNP. Urinalysis just showed a trace of lysed blood, otherwise within normal limits with microscopic only revealing 3 to 5 WBCs but no bacteria or RBCs. RADIOLOGY: She had a CT of the head without contrast without any acute findings per radiology interpretation. Chest x-ray showed increased interstitial lung colmenares bilaterally with patchy airspace opacities bilaterally with the left greater than the right but no obvious infusions bilaterally. ASSESSMENT: 1. Acute exacerbation of chronic obstructive pulmonary disease with developing bilateral community acquired pneumonia. 2. Acute mental status change secondary to hypoxic encephalopathy due to #1, improving with oxygen and treatment. 3. Thrombocytopenia, etiology uncertain. 4. Chronic tobacco abuse and nicotine addiction in a smoker. 5. History of depression on antidepressants. 6. Mild electrolyte imbalance with a mild hypokalemia. PLAN: Ms. Lancaster is admitted to the Medical/Surgical floor for ongoing treatment of community acquired pneumonia. She was started on Rocephin and azithromycin. This will be continued. She is on aggressive pulmonary hygiene as well. She has been encouraged to stop smoking. I did talk to her at length about this for greater than 10 minutes. I did offer some smoking cessation techniques which she will need further discussion prior to discharge. Will have her on aggressive pulmonary hygiene. Will hold off on Lovenox at this point with her thrombocytopenia and will closely monitor that. Once her platelet count improves well enough above 100,000 will start her on some Lovenox. At this point will start utilizing SCDs. I would anticipate her length of stay to be 2 to 3 days. Will plan for repeat labs and x-ray in the morning. Until we can transition her to outpatient management will continue to monitor and treat as needed. #[id number] [facility]
[2019-02-13] MEDS ORDERED: SODIUM CHLORIDE 0.9% (FLUSH) 10 ML SYG IV PRN (00:51)
[2019-02-13] MEDS ORDERED: ALBUTEROL SULFATE 2.5 MG/3 ML VIAL NEB PRN (00:51)
[2019-02-13] MEDS ORDERED: ONDANSETRON INJ 4 MG/2 ML VIAL IV PRN (00:51)
[2019-02-13] MEDS ORDERED: IV SET AND CAP CHANGE INJ INJ SCH (01:00)
[2019-02-13] MEDS: PANTOPRAZOLE SODIUM IV 40 MG VIAL IV SCH (05:56)
[2019-02-13] MEDS: IPRATROPIUM/ALBUTEROL 3 ML VIAL NEB SCH ×4 (09:09→20:50)
[2019-02-13] MEDS: cefTRIAXone SODIUM 1 GM in SODIUM CHL 0.9% 50ML MIN-BAG+ 50 ML IVPB SCH (09:27)
[2019-02-13] MEDS ORDERED: SODIUM CHL 0.9% 50ML MIN-BAG+ 50 ML IVPB ONE (09:27)
[2019-02-13] MEDS ORDERED: cefTRIAXone SODIUM 1 GM VIAL ONE (09:27)
[2019-02-13] MEDS: hydroCHLOROthiazide 12.5 MG CAP PO SCH (11:03)
[2019-02-13] MEDS: SODIUM CHLORIDE 0.9% (FLUSH) 10 ML SYG IV SCH ×2 (11:11→20:47)
[2019-02-13] MEDS ORDERED: methylPREDNISolone SODIUM SUC 125 MG/2 ML VIAL IV ONE (12:35)
[2019-02-13] MEDS ORDERED: SODIUM CHLORIDE 0.9% 250ML 250 ML ONE (12:36)
[2019-02-13] MEDS ORDERED: AZITHROMYCIN IV 500 MG VIAL IVPB ONE (12:36)
[2019-02-13] MEDS: AZITHROMYCIN IV 500 MG in SODIUM CHLORIDE 0.9% 250ML 250 ML IVPB SCH (12:43)
[2019-02-13] MEDS ORDERED: methylPREDNISolone SODIUM SUC 40 MG/ML VIAL ONE ×2 (14:41→19:46)
[2019-02-13] MEDS: methylPREDNISolone SODIUM SUC 40 MG/ML VIAL IV SCH ×2 (17:39→23:35)
[2019-02-13] MEDS ORDERED: GABAPENTIN 100 MG CAP PO SCH (21:00)
[2019-02-13] MEDS ORDERED: NON-FORMULARY MEDICATION 1 EA MIS (Anastrozole [Arimidex] 1 MG) PO SCH (21:00)
[2019-02-13] MEDS ORDERED: MELOXICAM 7.5 MG TAB PO SCH (21:00)
[2019-02-13] MEDS ORDERED: FLUoxetine HCL 20 MG CAP PO SCH (21:00)
[2019-02-13] MEDS ORDERED: IMIPRAMINE HCL 25 MG TAB PO SCH (21:00)
[2019-02-14] MEDS: methylPREDNISolone SODIUM SUC 40 MG/ML VIAL IV SCH (05:50)
[2019-02-14] MEDS: PANTOPRAZOLE SODIUM IV 40 MG VIAL IV SCH (05:53)
[2019-02-14] MEDS: IPRATROPIUM/ALBUTEROL 3 ML VIAL NEB SCH ×2 (08:32→12:50)
[2019-02-14] MEDS ORDERED: cefTRIAXone SODIUM 1 GM VIAL ONE (09:18)
[2019-02-14] MEDS ORDERED: SODIUM CHL 0.9% 50ML MIN-BAG+ 50 ML IVPB ONE (09:18)
[2019-02-14] MEDS: cefTRIAXone SODIUM 1 GM in SODIUM CHL 0.9% 50ML MIN-BAG+ 50 ML IVPB SCH (09:28)
[2019-02-14] MEDS: hydroCHLOROthiazide 12.5 MG CAP PO SCH (09:28)
--- NOTE | 2019-02-14 11:55 | RAD ---
EXAM: XR Chest, 2 Views CLINICAL HISTORY: Pneumonia TECHNIQUE: Frontal and lateral views of the chest. COMPARISON: 02/12/2019. FINDINGS: Limitations: None. Lungs: Unremarkable. No consolidation. Pleural space: Unremarkable. No pneumothorax. Heart: Unremarkable. No cardiomegaly. Mediastinum: Unremarkable. Bones/joints: Unremarkable. IMPRESSION: No acute findings in the chest. Electronically signed by: Ene Riley MD 02/14/2019 11:53 AM CDT
[2019-02-14] MEDS ORDERED: SODIUM CHLORIDE 0.9% 250ML 250 ML ONE (12:04)
[2019-02-14] MEDS ORDERED: AZITHROMYCIN IV 500 MG VIAL IVPB ONE (12:05)
[2019-02-14] MEDS: SODIUM CHLORIDE 0.9% (FLUSH) 10 ML SYG IV SCH (12:13)
[2019-02-14] MEDS: AZITHROMYCIN IV 500 MG in SODIUM CHLORIDE 0.9% 250ML 250 ML IVPB SCH (12:13)
[2019-02-14 15:17] VITALS: BP 158/79; TEMP 98.3; O2SAT 95
--- NOTE | 2019-02-18 14:05 | DS ---
SUPERVISING PHYSICIAN: Ap Veliz MD ADMISSION DIAGNOSIS: 1. Acute exacerbation of chronic obstructive pulmonary disease with developing bilateral community acquired pneumonia. 2. Acute mental status change secondary to hypoxic encephalopathy due to #1, improving with oxygen and treatment. 3. Thrombocytopenia, etiology uncertain. 4. Chronic tobacco abuse and nicotine addiction in a smoker. 5. History of depression on antidepressants. 6. Mild electrolyte imbalance with a mild hypokalemia. DISCHARGE DIAGNOSIS: 1. Acute exacerbation of chronic obstructive pulmonary disease with bilateral community acquired pneumonia, showing good response to antibiotic therapy. 2. Acute mental status change secondary to hypoxic encephalopathy due to #1, improved with oxygen and treatment. 3. Thrombocytopenia, etiology uncertain. 4. Chronic tobacco abuse and nicotine addiction in a smoker. 5. History of depression on antidepressants. 6. Mild electrolyte imbalance with a mild hypokalemia. REASON FOR HOSPITALIZATION: Ms. Lancaster is a 78 year-old female patient that presented to the Emergency Room earlier last night by EMS due to some aggressive confusion that had been occurring over the last 2 to 3 days. Her son-in-law and daughter live with her and report that the patient has been progressively showing worsening symptoms. She has had similar symptoms in the past in May 2017 which was associated with chronic obstructive pulmonary disease exacerbation. It was noted that the patient had increasing cough over the last several days along with some wheezing but no definitive fevers and that she had not been wearing her oxygen. She also reports that she continues to smoke and that throughout the night she has to go outside and smoke, and therefore she has been taking her oxygen off. In the E. R. she was showing to be without any focal neurological deficits but was showing some issues with focusing and could only follow one step questions. It was noted that she was able to ambulate although her gait was noted to be a little unsteady. Her lab work showed she had a white count of 3,800 with a left shift. Hemoglobin 14.5, hematocrit 42.2. Chemistries show just a mildly low potassium at 3.4 with BUN 16, creatinine 0.7. Liver functions are all within normal limits. Lactic acid at 0.7. Troponin was at 0.02. TSH was normal at 1.29. Urinalysis just showed a trace of blood with 40 of ketones. Microscopic revealed 3 to 5 WBCs, 0 RBCs, no bacteria. Chest x-ray in the E. R. showed enlarged heart with central congestion but no new infiltrates were definitely seen. There was note of increased interstitial findings in the lung colmenares bilaterally with some patchy airspace opacities bilaterally with left greater than right. CT of the head without contrast showed no acute intracranial findings. Vital signs showed on admission showed that she was running a low-grade fever of 99.7 and was 86% on room air. Saturations improving to 95% on 2 liters nasal cannula. In the E. R. she was started on Rocephin, azithromycin and some prednisone as well as given breathing treatments. It was noted that she had some improvement in her mentation after treatment and therefore is going to be admitted for COPD exacerbation with acute mental status secondary to hypoxic encephalopathy. She was admitted in stable condition. LABORATORY: White count on admission was 3,800, at discharge was 5,300. Hemoglobin and hematocrit were stable at 14.3 and 42.3, respectively, with platelet count 89,000 from 79,000 at admission. Differential did show a left shift. Coagulation studies showed PT 10, PTT 43.4. Chemistries on discharge were normal electrolytes with BUN 25, creatinine 0.72. Calcium 10.5. Liver function tests all within normal limits. TSH normal at 1.29. Urinalysis showed trace of blood with 40 ketones with RBCs 3 to 5, otherwise within normal limits. MICROBIOLOGY: Sputum culture showed mixed gram positive erika with final report showing normal erika. RADIOLOGY: CT of the head on admission without contrast per radiologic interpretation showed no acute intracranial findings. Please see that report for details. She had multiple chest x-rays. Initial chest x-ray on admission per radiologic interpretation showed enlarged heart with mild central congestion. No new infiltrates or chronic changes with some patchy airspace opacities bilaterally, left greater than right. Final chest x-ray on discharge showed no acute findings in the chest. HOSPITAL COURSE: Ms. Lancaster was admitted for acute mental status change secondary to mild hypoxia due to the fact she was not wearing her oxygen and she is O2 dependent as well as she had bilateral pneumonia. She was started on treatment for community acquired pneumonia with antibiotic coverage with Rocephin and azithromycin. The patient showed good response to treatment and good bronchial hygiene. The patient was back to her baseline status. She had no changes in her mental status during hospitalization. She was ambulating without any difficulty with oxygen and was felt to be back to baseline mental status and clinically stable to discharge for outpatient management. DISCHARGE PHYSICAL EXAMINATION: VITAL SIGNS: Temperature 98.3. Pulse 87. Blood pressure 158/79. Respirations 20. Saturation 95% on 2 liters nasal cannula. GENERAL: The patient is resting comfortably, appears to be in no acute distress. CHEST: Clear to auscultation, just slightly diminished towards the bases bilaterally. HEART: Regular rate and rhythm. ABDOMEN: Soft, nontender, positive bowel sounds. EXTREMITIES: No edema. NEUROLOGIC: Alert and oriented times 3. PLAN: Ms. Lancaster was discharged on 02/14/19 with instructions to followup with Dr. Rodriguez on 02/17/19 at 11:15 AM. She was to resume her medications as instructed. She was encouraged to stop smoking and to wear oxygen as directed. She was told to return to the Emergency Room if she had any concerning symptoms. Diet on discharge was regular diet as tolerated. Activities as tolerated. She was to wear oxygen as directed. MEDICATIONS ON DISCHARGE: 1. Cefdinir 300 mg twice daily, #14. 2. Medrol Dosepak 4 mg 6-day tapering dose as directed. All other medications were continued as prior to hospitalization. DISPOSITION: The patient is discharged home. CONDITION ON DISCHARGE: Stable and improved. #[id number] [facility]
== END 2019-02-14 15:40 | disposition home or self-care (01) | DRG 194 ==
LOC: ER 18:55 → OBSVTOIN 22:37 → MS 22:37
PROVIDERS: ADMIT Nurse Practitioner Acute Care; ATTEND Nurse Practitioner Family
DX: J18.9 Pneumonia, unspecified organism (principal); J44.1 Chronic obstructive pulmonary disease with (acute) exacerbation; G93.1 Anoxic brain damage, not elsewhere classified; J44.0 Chronic obstructive pulmonary disease with (acute) lower respiratory infection; E87.6 Hypokalemia; M81.0 Age-related osteoporosis without current pathological fracture; M85.80 Other specified disorders of bone density and structure, unspecified site; D69.6 Thrombocytopenia, unspecified; F32.9 Major depressive disorder, single episode, unspecified; F17.210 Nicotine dependence, cigarettes, uncomplicated; Z99.81 Dependence on supplemental oxygen; Z85.3 Personal history of malignant neoplasm of breast; Z79.1 Long term (current) use of non-steroidal anti-inflammatories (NSAID); Z79.899 Other long term (current) drug therapy; Z88.5 Allergy status to narcotic agent; Z88.2 Allergy status to sulfonamides

== ENCOUNTER → 2019-02-18 | Outpatient (CLI) | payer MEDICARE, OTHER ==
[~2019-02-18] MED LIST: ALBUTEROL SULFATE 2.5 MG/3 ML VIAL NEB ONE
== END ==
LOC: RESP 13:50
PROVIDERS: ATTEND Family Medicine
DX: J44.1 Chronic obstructive pulmonary disease with (acute) exacerbation (principal)
CPT/HCPCS: 94060; J7611

== ENCOUNTER → 2019-07-12 | Outpatient (CLI) | payer OTHER | DX: I10 Essential (primary) hypertension (principal); M81.0 Age-related osteoporosis without current pathological fracture ==

== ENCOUNTER → 2020-01-26 | Outpatient (CLI) | payer OTHER ==
--- NOTE | 2020-01-27 08:27 | CT ---
PROCEDURE: CT LUNG CANCER SCREENING CLINICAL HISTORY: Screening visit subsequent examination, Lung cancer screening,. This patient meets eligibility criteria for low-dose CT lung cancer screening. COMPARISON: CT lung cancer screening dated 12/26/2017. TECHNIQUE: Low-dose dose transaxial CT of the chest with multiplanar reconstruction. kVp: 120 mA: 45 DLP: 65 FINDINGS: Diagnostic quality: Adequate Lung nodules: Left lower lobe 3 mm noncalcified nodule (two image 92), unchanged. Right upper lobe 2 mm noncalcified nodule (series 2 image 29), unchanged. Right minor fissure superficial lymph node is also unchanged (series 602 image 48). Lungs: COPD: Mild emphysematous changes within the upper lobes. Fibrosis: Mild subpleural scarring along the upper lobes anteriorly. Lymph nodes: Nonenlarged Other findings: None. Pleural space: Effusion: None Calcifications: None Thickening: None Pneumothorax: None Heart: Heart size: Normal Coronary calcification: Mild LAD coronary arterial calcification. Pericardial effusion: None. Other findings: Upper abdomen: Partially imaged left nephrolithiasis.. Thorax: Post surgical changes along the left breast and axilla are noted. IMPRESSION: 1. Stable bilateral subcentimeter pulmonary nodules. No new or enlarging pulmonary nodules. 2. Mild pulmonary emphysema. LUNG RADS: Category 1: NEGATIVE. No nodules and definitely benign nodules. Findings include no lung nodules. Nodule(s) with specific calcifications: complete, central, popcorn, concentric rings and fat containing nodule(s) are considered benign. MANAGEMENT: Continue annual screening with low dose CT in 12 months. This exam was performed according to our departmental dose-optimization program, which includes automated exposure control, adjustment of the mA and/or kV according to patient size and/or use of iterative reconstruction technique. Electronically signed by: Daniel Faust DO 01/27/2020 8:25 AM CDT
== END ==
LOC: CT 14:00
PROVIDERS: ATTEND Family Medicine
DX: Z12.2 Encounter for screening for malignant neoplasm of respiratory organs (principal); R91.8 Other nonspecific abnormal finding of lung field; J43.9 Emphysema, unspecified; Z87.891 Personal history of nicotine dependence